=== PATIENT | male | born 1950 | race Caucasian/White ===

== ENCOUNTER 2017-07-17 09:14 | Inpatient (IN) | payer OTHER ==
[2017-07-17] MEDS ORDERED: ONDANSETRON 4 MG INJ IV (10:30)
[2017-07-17 10:49] LABS: INR 1.15; PROTIME 14.9 Sec (11.9-14.9); PT RATIO 1.2
[2017-07-17 10:50] LABS: PARTIAL THROMBOPLASTIN TIME 31.5 Sec (25.0-35.0)
[2017-07-17 11:04] LABS: IMMEDIATE SPIN CROSSMATCH 1 2
[2017-07-17] MEDS: DIPHENHYDRAMINE 50 MG INJ IV (11:24)
[2017-07-17] MEDS: ACETAMINOPHEN 325 MG TAB PO ×2 (11:25→15:30)
[2017-07-17 11:32] LABS: ALANINE AMINOTRANSFERASE 55 IU/L (13-69); ALBUMIN 3.1 g/dl (3.3-4.9); ALBUMIN/GLOBULIN RATIO 1.06; ALKALINE PHOSPHATASE 55 IU/L (42-121); ANION GAP 16 (8-16); ASPARTATE AMINO TRANSFERASE 25 IU/L (15-46); BILIRUBIN,INDIRECT 0.6 mg/dl (0-1.1); BILIRUBIN,TOTAL 0.6 mg/dl (0.2-1.3); BLOOD UREA NITROGEN 22 mg/dl (7-20); CALCIUM 8.1 mg/dl (8.4-10.2); CARBON DIOXIDE 23 mmol/L (21-31); CHLORIDE 101 mmol/L (97-110); CREATININE 0.91 mg/dl (0.61-1.24); GLUCOSE 203 mg/dl (70-220); POTASSIUM 4.6 mmol/L (3.5-5.1); SODIUM 135 mmol/L (135-144)
[2017-07-17 11:43] LABS: TROPONIN-I 0.032 ng/ml (0.00-0.12)
[2017-07-17] MEDS ORDERED: GLIMEPIRIDE 2 MG TAB PO (12:00)
[2017-07-17] MEDS ORDERED: LOSARTAN 50 MG TAB PO (12:00)
[2017-07-17 12:04] LABS: WHITE BLOOD COUNT 26.6 10^3/ul (4.8-10.8)
[2017-07-17 12:04] LABS: ABNORMAL IP MESSAGE 1; HEMATOCRIT 20.7 % (42.0-52.0); MEAN CORPUSCULAR HEMOGLOBIN 28.4 pg (29.0-33.0); MEAN CORPUSCULAR HGB CONC 32.4 g/dl (32.0-37.0); MEAN CORPUSCULAR VOLUME 87.7 fl (82.0-101.0); POSITIVE DIFF @See below; RED BLOOD COUNT 2.36 10^6/ul (4.70-6.10); RED CELL DISTRIBUTION WIDTH 15.4 % (11.5-14.5)
[2017-07-17 12:05] LABS: HEMOGLOBIN 6.7 g/dl (14.0-18.0)
[2017-07-17 12:08] LABS: ADD MAN DIFF? YES; PATH REVIEW? YES; PLATELET COUNT 0 10^3/UL (140-415)
[2017-07-17 12:18] LABS: ANISOCYTOSIS 1+ (0-0); BAND NEUTROPHILS #M 0.7 10^3/ul (0.0-0.6); BAND NEUTROPHILS % (M) 3 % (0-4); LYMPHOCYTES #M 3.4 10^3/ul (0.8-2.9); LYMPHOCYTES % (M) 13 % (15-51); METAMYELOCYTES %M 4 % (0-0); MICROCYTOSIS 1+ (0-0); MONOCYTE #M 2.1 10^3/ul (0.3-0.9); MONOCYTES % (M) 8 % (0-11); MYELOCYTES #M 0.7 10^3/ul (0.0-0.0); MYELOCYTES % (M) 3 % (0-0); PLATELET ESTIMATE SIG DECREASED; POLYCHROMASIA 1+ (0-0); REACTIVE LYMPHOCYTES% (M) 4 % (0-0); SEGMENTED NEUTROPHILS (M) % 7 % (39-77); SMUDGE%M 5 % (0-0)
[2017-07-17] MEDS ORDERED: ONDANSETRON 4 MG TAB PO (12:30)
[2017-07-17] MEDS ORDERED: DOCUSATE SODIUM 100 MG CAP PO (12:30)
[2017-07-17] MEDS ORDERED: NACL 0.9% 3 ML SYG IV (12:30)
[2017-07-17] MEDS: LACTOBACILLUS RHAMNOSUS CAP PO ×2 (15:04→20:57)
[2017-07-17] MEDS: FAMOTIDINE 20 MG TAB PO ×2 (15:04→22:29)
[2017-07-17] MEDS: metroNIDAZOLE 500 MG TAB PO ×2 (15:04→22:29)
[2017-07-17] MEDS: ACYCLOVIR 400 MG TAB PO ×2 (15:04→20:58)
[2017-07-17] MEDS: METOPROLOL 25 MG TAB PO ×2 (15:05→20:57)
[2017-07-17] MEDS: FLUCONAZOLE 100 MG TAB PO (15:05)
[2017-07-17 15:45] LABS: TYPE AND SCREEN 1
[2017-07-17 15:59] LABS: WHITE BLOOD COUNT 29.1 10^3/ul (4.8-10.8)
[2017-07-17 15:59] LABS: ABNORMAL IP MESSAGE 1; HEMATOCRIT 21.4 % (42.0-52.0); HEMOGLOBIN 7.1 g/dl (14.0-18.0); MEAN CORPUSCULAR HEMOGLOBIN 29.3 pg (29.0-33.0); MEAN CORPUSCULAR HGB CONC 33.2 g/dl (32.0-37.0); MEAN CORPUSCULAR VOLUME 88.4 fl (82.0-101.0); MEAN PLATELET VOLUME 10.5 fl (7.4-10.4); POSITIVE DIFF @See below; RED BLOOD COUNT 2.42 10^6/ul (4.70-6.10); RED CELL DISTRIBUTION WIDTH 14.6 % (11.5-14.5)
[2017-07-17 16:08] LABS: ADD MAN DIFF? YES; PLATELET COUNT 8 10^3/UL (140-415)
[2017-07-17 16:39] LABS: BAND NEUTROPHILS #M 0.5 10^3/ul (0.0-0.6); BAND NEUTROPHILS % (M) 2 % (0-4); LYMPHOCYTES #M 7.5 10^3/ul (0.8-2.9); LYMPHOCYTES % (M) 26 % (15-51); METAMYELOCYTES #M 0.8 10^3/ul (0.0-0.0); METAMYELOCYTES %M 3 % (0-0); MYELOCYTES #M 0.2 10^3/ul (0.0-0.0); MYELOCYTES % (M) 1 % (0-0); PLATELET ESTIMATE SIG DECREASED; REACTIVE LYMPHOCYTES #M 0.2 10^3/ul (0.0-0.0); REACTIVE LYMPHOCYTES% (M) 1 % (0-0); SEG NEUT #M 2.8 10^3/ul (1.7-7.5); SEGMENTED NEUTROPHILS (M) % 9 % (39-77); SMUDGE%M 9 % (0-0)
[2017-07-17] MEDS: ACCU-CHEK XX (21:01)
[2017-07-17 21:02] LABS: ABNORMAL IP MESSAGE 1; HEMATOCRIT 21.5 % (42.0-52.0); HEMOGLOBIN 7.4 g/dl (14.0-18.0); MEAN CORPUSCULAR HEMOGLOBIN 30.2 pg (29.0-33.0); MEAN CORPUSCULAR HGB CONC 34.4 g/dl (32.0-37.0); MEAN CORPUSCULAR VOLUME 87.8 fl (82.0-101.0); MEAN PLATELET VOLUME 9.6 fl (7.4-10.4); POSITIVE DIFF @See below; RED BLOOD COUNT 2.45 10^6/ul (4.70-6.10); RED CELL DISTRIBUTION WIDTH 14.6 % (11.5-14.5)
[2017-07-17 21:08] LABS: ADD MAN DIFF? YES; PLATELET COUNT 30 10^3/UL (140-415)
[2017-07-17 21:36] LABS: ANISOCYTOSIS 1+ (0-0); LYMPHOCYTES #M 6.8 10^3/ul (0.8-2.9); LYMPHOCYTES % (M) 22 % (15-51); MICROCYTOSIS 1+ (0-0); MONOCYTE #M 3.4 10^3/ul (0.3-0.9); MONOCYTES % (M) 11 % (0-11); MYELOCYTES #M 0.6 10^3/ul (0.0-0.0); MYELOCYTES % (M) 2 % (0-0); PLATELET ESTIMATE SIG DECREASED; PROMYELOCYTES #M 0.9 10^3/ul (0-0); PROMYELOCYTES % (M) 3 % (0-0); REACTIVE LYMPHOCYTES #M 0.6 10^3/ul (0.0-0.0); REACTIVE LYMPHOCYTES% (M) 2 % (0-0); SEGMENTED NEUTROPHILS (M) % 9 % (39-77); SMUDGE%M 3 % (0-0)
== END 2017-07-17 23:33 | disposition hospice, home (50) | DRG 813 ==
LOC: E/R 09:14 → PP2 10:04
PROVIDERS: Internal Medicine
PROC: 30233R1 Transfusion of Nonautologous Platelets into Peripheral Vein, Percutaneous Approach (ICD-10-PCS; principal; 2017-07-17)
PROC: 30233N1 Transfusion of Nonautologous Red Blood Cells into Peripheral Vein, Percutaneous Approach (ICD-10-PCS; 2017-07-17)
DX: D69.6 Thrombocytopenia, unspecified (principal); C92.00 Acute myeloblastic leukemia, not having achieved remission; I10 Essential (primary) hypertension; E11.9 Type 2 diabetes mellitus without complications; Z87.891 Personal history of nicotine dependence
CPT/HCPCS: 36415; 36430; 80053; 82962; 84484; 85025; 85610; 85730; 86644; 86850; 86900; 86901; 86920; 86945; 87081; 93005; 96374; 99291-25

== ENCOUNTER 2017-07-19 12:58 | Day surgery (SDC) | payer OTHER ==
[2017-07-20] MEDS: ACETAMINOPHEN 325 MG TAB PO ×2 (09:47→13:25)
[2017-07-20] MEDS: DIPHENHYDRAMINE 50 MG INJ IV (09:47)
[2017-07-20 10:04] LABS: IMMEDIATE SPIN CROSSMATCH 1 1
[2017-07-20 13:13] LABS: TYPE AND SCREEN 1
== END 2017-07-20 | disposition home or self-care (01) ==
LOC: LAB 12:58 → SDS 07-20 08:46
DX: C92.00 Acute myeloblastic leukemia, not having achieved remission (principal)
CPT/HCPCS: 36430; 86644; 86850; 86900; 86901; 86920; 86945

== ENCOUNTER 2017-08-03 11:11 | Emergency (ER) | payer OTHER ==
[2017-08-03 14:06] LABS: ABNORMAL IP MESSAGE 1; HEMOGLOBIN 8.7 g/dl (14.0-18.0); MEAN CORPUSCULAR HEMOGLOBIN 29.4 pg (29.0-33.0); MEAN CORPUSCULAR HGB CONC 32.2 g/dl (32.0-37.0); MEAN CORPUSCULAR VOLUME 91.2 fl (82.0-101.0); MEAN PLATELET VOLUME 10.2 fl (7.4-10.4); POSITIVE DIFF @See below; RED BLOOD COUNT 2.96 10^6/ul (4.70-6.10); RED CELL DISTRIBUTION WIDTH 14.9 % (11.5-14.5)
[2017-08-03 14:06] LABS: WHITE BLOOD COUNT 9.8 10^3/ul (4.8-10.8)
[2017-08-03 14:23] LABS: INR 1.07; PT RATIO 1.1
[2017-08-03 14:24] LABS: ANION GAP 15 (8-16); BLOOD UREA NITROGEN 24 mg/dl (7-20); CALCIUM 9.6 mg/dl (8.4-10.2); CARBON DIOXIDE 25 mmol/L (21-31); CHLORIDE 102 mmol/L (97-110); CREATININE 0.98 mg/dl (0.61-1.24); GLUCOSE 110 mg/dl (70-220); PARTIAL THROMBOPLASTIN TIME 32.9 Sec (25.0-35.0); POTASSIUM 4.4 mmol/L (3.5-5.1); SODIUM 138 mmol/L (135-144)
[2017-08-03 14:28] LABS: ADD MAN DIFF? YES
[2017-08-03] MEDS: DIPHENHYDRAMINE 50 MG INJ IV (16:27)
[2017-08-03] MEDS: ACETAMINOPHEN 500 MG TAB PO (16:27)
[2017-08-03 19:18] LABS: IMMEDIATE SPIN CROSSMATCH 1 2
[2017-08-03 21:22] LABS: TYPE AND SCREEN 1
[2017-08-03 21:25] LABS: BLASTOCYTES #M 0.6 10^3/ul (0.0-0.0); LYMPHOCYTES % (M) 31 % (15-51); MONOCYTE # 0.6 10^3/ul (0.3-0.9); MONOCYTE #M 0.5 10^3/ul (0.3-0.9); MONOCYTES % (M) 6 % (0-11); PROMYELOCYTES #M 0.1 10^3/ul (0-0); PROMYELOCYTES % (M) 2 % (0-0); SEGMENTED NEUTROPHILS (M) % 3 % (39-77)
[2017-08-03 21:34] LABS: MYELOCYTES #M 0.1 10^3/ul (0.0-0.0); MYELOCYTES % (M) 2 % (0-0)
[2017-08-03 21:35] LABS: ANISOCYTOSIS OCCASIONAL (0-0); OVALOCYTES FEW (0-0); POIKILOCYTOSIS OCCASIONAL (0-0); SPHEROCYTES FEW (0-0)
[2017-08-03 21:36] LABS: SCHISTOCYTES FEW (0-0)
[2017-08-03 21:37] LABS: PLATELET COUNT 4 10^3/UL (140-415)
[2017-08-03 21:53] LABS: PLATELET ESTIMATE SIG DECREASED
[2017-08-03] MEDS: FAMOTIDINE 20 MG TAB PO (22:47)
== END 2017-08-04 00:07 | disposition home or self-care (01) ==
LOC: E/R 08-04 00:07
DX: D69.6 Thrombocytopenia, unspecified (principal); I10 Essential (primary) hypertension; Z85.6 Personal history of leukemia
CPT/HCPCS: 36415; 36430; 80048; 85025; 85610; 85730; 86644; 86850; 86900; 86901; 86920; 86945; 96374; 99285-25

== ENCOUNTER 2017-08-06 14:50 | Observation (INO) | payer OTHER ==
[2017-08-06] MEDS: SOD CHLORIDE 0.9% 500 ML IV ×2 (18:00→22:50)
[2017-08-06 18:33] LABS: ABNORMAL IP MESSAGE 1; HEMATOCRIT 28.1 % (42.0-52.0); HEMOGLOBIN 9.3 g/dl (14.0-18.0); MEAN CORPUSCULAR HEMOGLOBIN 29.5 pg (29.0-33.0); MEAN CORPUSCULAR HGB CONC 33.1 g/dl (32.0-37.0); MEAN CORPUSCULAR VOLUME 89.2 fl (82.0-101.0); MEAN PLATELET VOLUME 8.1 fl (7.4-10.4); POSITIVE DIFF @See below; RED BLOOD COUNT 3.15 10^6/ul (4.70-6.10); RED CELL DISTRIBUTION WIDTH 15.5 % (11.5-14.5)
[2017-08-06 18:33] LABS: WHITE BLOOD COUNT 10.2 10^3/ul (4.8-10.8)
[2017-08-06 18:47] LABS: PLATELET COUNT 6 10^3/UL (140-415)
[2017-08-06 18:48] LABS: ADD MAN DIFF? YES
[2017-08-06 18:57] LABS: ALANINE AMINOTRANSFERASE 36 IU/L (13-69); ALBUMIN 3.9 g/dl (3.3-4.9); ALBUMIN/GLOBULIN RATIO 1.14; ALKALINE PHOSPHATASE 98 IU/L (42-121); ANION GAP 15 (8-16); ASPARTATE AMINO TRANSFERASE 13 IU/L (15-46); BILIRUBIN,INDIRECT 0.2 mg/dl (0-1.1); BILIRUBIN,TOTAL 0.2 mg/dl (0.2-1.3); BLOOD UREA NITROGEN 17 mg/dl (7-20); CALCIUM 9.1 mg/dl (8.4-10.2); CARBON DIOXIDE 26 mmol/L (21-31); CHLORIDE 102 mmol/L (97-110); CREATININE 0.88 mg/dl (0.61-1.24); GLUCOSE 134 mg/dl (70-220); POTASSIUM 4.4 mmol/L (3.5-5.1); SODIUM 139 mmol/L (135-144); TOTAL PROTEIN 7.3 g/dl (6.1-8.1)
[2017-08-06 18:59] LABS: INR 1.01; PROTIME 13.4 Sec (11.9-14.9)
[2017-08-06 19:00] LABS: PARTIAL THROMBOPLASTIN TIME 32.9 Sec (25.0-35.0)
[2017-08-06 19:14] LABS: TROPONIN-I < 0.012 ng/ml (0.00-0.12)
[2017-08-06 19:31] LABS: BAND NEUTROPHILS #M 0.1 10^3/ul (0.0-0.6); BAND NEUTROPHILS % (M) 1 % (0-4); BLAST% (M) 62.6 % (0-0); LYMPHOCYTES #M 1.3 10^3/ul (0.8-2.9); LYMPHOCYTES % (M) 13 % (15-51); METAMYELOCYTES #M 0.1 10^3/ul (0.0-0.0); METAMYELOCYTES %M 1 % (0-0); MONOCYTE #M 0.7 10^3/ul (0.3-0.9); MONOCYTES % (M) 7 % (0-11); PLATELET ESTIMATE SIG DECREASED; PLATELET MORPHOLOGY COMMENT @See below; PROMYELOCYTES #M 0.1 10^3/ul (0-0); PROMYELOCYTES % (M) 1 % (0-0); SEG NEUT #M 1.4 10^3/ul (1.7-7.5); SEGMENTED NEUTROPHILS (M) % 14 % (39-77); SMUDGE%M 11 % (0-0)
[2017-08-06] MEDS ORDERED: DEXTROSE 50% 50 ML SYRINGE IV ×2 (20:30)
[2017-08-06] MEDS ORDERED: GLUCOSE GEL 15 GRAM TUBE BUCCAL (20:30)
[2017-08-06] MEDS ORDERED: GLUCAGON 1 MG INJ IM (20:30)
[2017-08-06] MEDS ORDERED: ONDANSETRON 4 MG INJ IV (20:30)
[2017-08-06] MEDS ORDERED: ACETAMINOPHEN 325 MG TAB PO (20:30)
[2017-08-06] MEDS ORDERED: GLUCOSE GEL 15 GRAM TUBE PO ×2 (20:30)
[2017-08-06] MEDS: ATORVASTATIN 10 MG TAB PO (21:00)
[2017-08-06] MEDS: METOPROLOL 50 MG TAB PO (21:00)
[2017-08-07] MEDS ORDERED: LORAZEPAM 2 MG INJ IV (00:30)
[2017-08-07] MEDS ORDERED: ONDANSETRON 4 MG INJ IV (00:30)
[2017-08-07] MEDS ORDERED: HYDROCODONE/APAP (10/325) TAB PO (00:30)
[2017-08-07] MEDS: ACETAMINOPHEN 325 MG TAB PO (00:54)
[2017-08-07] MEDS: DIPHENHYDRAMINE 50 MG INJ IV (01:02)
[2017-08-07] MEDS: METOCLOPRAMIDE 10 MG INJ IV (01:03)
[2017-08-07 04:09] LABS: TYPE AND SCREEN 1 1
[2017-08-07 06:30] LABS: ADD MAN DIFF? NO
[2017-08-07 06:36] LABS: ABNORMAL IP MESSAGE 1; LYMPHOCYTES # 3.5 10^3/ul (0.8-2.9); LYMPHOCYTES % 38.4 % (15.0-51.0); MEAN CORPUSCULAR HEMOGLOBIN 29.6 pg (29.0-33.0); MEAN CORPUSCULAR HGB CONC 33.3 g/dl (32.0-37.0); MEAN CORPUSCULAR VOLUME 88.9 fl (82.0-101.0); MONOCYTE # 3.3 10^3/ul (0.3-0.9); NEUTROPHIL # 1.9 10^3/ul (1.6-7.5); NEUTROPHILS % 20.8 % (39.0-77.0); PLATELET COUNT 41 10^3/UL (140-415); POSITIVE DIFF @See below; RED CELL DISTRIBUTION WIDTH 15.5 % (11.5-14.5)
[2017-08-07 06:36] LABS: WHITE BLOOD COUNT 9.2 10^3/ul (4.8-10.8)
[2017-08-07 07:20] LABS: MONOCYTES % 35.6 % (0.0-11.0)
[2017-08-07] MEDS: INSULIN ASPART [NOVOLOG] 3 ML PEN SC (07:50)
[2017-08-07] MEDS: METOPROLOL 50 MG TAB PO (09:04)
[2017-08-07] MEDS: GLIMEPIRIDE 2 MG TAB PO (09:04)
[2017-08-07 10:08] LABS: ANISOCYTOSIS 2+ (0-0); BAND NEUTROPHILS #M 0.3 10^3/ul (0.0-0.6); BAND NEUTROPHILS % (M) 4 % (0-4); LYMPHOCYTES #M 1.1 10^3/ul (0.8-2.9); LYMPHOCYTES % (M) 13 % (15-51); MICROCYTOSIS 2+ (0-0); MONOCYTE #M 0.3 10^3/ul (0.3-0.9); MONOCYTES % (M) 4 % (0-11); PLATELET ESTIMATE SIG DECREASED; SEG NEUT #M 0.9 10^3/ul (1.7-7.5); SEGMENTED NEUTROPHILS (M) % 9 % (39-77)
== END 2017-08-07 10:57 | disposition home or self-care (01) ==
LOC: E/R 14:50 → MS1 20:01
DX: C92.00 Acute myeloblastic leukemia, not having achieved remission (principal); D69.6 Thrombocytopenia, unspecified; I10 Essential (primary) hypertension; E11.9 Type 2 diabetes mellitus without complications; F41.9 Anxiety disorder, unspecified; R51 Headache; Z87.891 Personal history of nicotine dependence
CPT/HCPCS: 36415; 36430; 70450; 80053; 82962; 84484; 85025; 85610; 85730; 86644; 86850; 86900; 86901; 86945; 99285-25

== ENCOUNTER 2017-08-13 10:54 | Inpatient (IN) | payer OTHER ==
[2017-08-13] MEDS: SODIUM CHLORIDE 0.9% 1L BAG IV* (12:36)
[2017-08-13] MEDS: CEFEPIME 2GM/50 ML (PMX) 50 ML IVPB (12:37)
[2017-08-13] MEDS: ACETAMINOPHEN 325 MG TAB PO ×3 (12:37→20:56)
[2017-08-13 12:39] LABS: WHITE BLOOD COUNT 31.7 10^3/ul (4.8-10.8)
[2017-08-13 12:39] LABS: ABNORMAL IP MESSAGE 1; HEMATOCRIT 25.6 % (42.0-52.0); HEMOGLOBIN 8.5 g/dl (14.0-18.0); MEAN CORPUSCULAR HEMOGLOBIN 28.9 pg (29.0-33.0); MEAN CORPUSCULAR HGB CONC 33.2 g/dl (32.0-37.0); MEAN CORPUSCULAR VOLUME 87.1 fl (82.0-101.0); MEAN PLATELET VOLUME 10.8 fl (7.4-10.4); POSITIVE DIFF @See below; RED BLOOD COUNT 2.94 10^6/ul (4.70-6.10); RED CELL DISTRIBUTION WIDTH 14.8 % (11.5-14.5)
[2017-08-13 12:52] LABS: ADD MAN DIFF? YES; PLATELET COUNT 9 10^3/UL (140-415)
[2017-08-13 13:01] LABS: ALANINE AMINOTRANSFERASE 32 IU/L (13-69); ALBUMIN 3.7 g/dl (3.3-4.9); ALBUMIN/GLOBULIN RATIO 1.15; ALKALINE PHOSPHATASE 90 IU/L (42-121); ANION GAP 17 (8-16); ASPARTATE AMINO TRANSFERASE 15 IU/L (15-46); BILIRUBIN,INDIRECT 0.4 mg/dl (0-1.1); BILIRUBIN,TOTAL 0.4 mg/dl (0.2-1.3); BLOOD UREA NITROGEN 18 mg/dl (7-20); CALCIUM 8.6 mg/dl (8.4-10.2); CARBON DIOXIDE 22 mmol/L (21-31); CHLORIDE 99 mmol/L (97-110); GLUCOSE 167 mg/dl (70-220); PARTIAL THROMBOPLASTIN TIME 38.8 Sec (25.0-35.0); POTASSIUM 4.6 mmol/L (3.5-5.1); PROTIME 15.4 Sec (11.9-14.9); PT RATIO 1.2; SODIUM 133 mmol/L (135-144); TOTAL PROTEIN 6.9 g/dl (6.1-8.1)
[2017-08-13 13:01] LABS: LACTIC ACID 1.8 mmol/L (0.5-2.0)
[2017-08-13 13:02] LABS: LACTIC ACID 1.7 mmol/L (0.5-2.0)
[2017-08-13 13:12] LABS: TROPONIN-I < 0.012 ng/ml (0.00-0.12)
[2017-08-13] MEDS: VANCOMYCIN 1 GM (PMX) 250 ML IVPB (13:19)
[2017-08-13 13:51] LABS: ADD UMIC YES; UR ASCORBIC ACID 40 mg/dL (NEGATIVE); UR BILIRUBIN (Dip) NEGATIVE (NEGATIVE); UR BLOOD (Dip) 1+ mg/dL (NEGATIVE); UR CLARITY SLIGHTLY CLOUDY (CLEAR); UR COLOR YELLOW (YELLOW); UR GLUCOSE (Dip) NEGATIVE (NEGATIVE); UR KETONES (Dip) NEGATIVE (NEGATIVE); UR LEUKOCYTE ESTERASE (Dip) NEGATIVE Leu/ul (NEGATIVE); UR NITRITE (Dip) NEGATIVE (NEGATIVE); UR RBC 12 /HPF (0-5); UR SPECIFIC GRAVITY (Dip) 1.013 (1.003-1.030); UR TOTAL PROTEIN (Dip) NEGATIVE (NEGATIVE); UR UROBILINOGEN (Dip) NEGATIVE (NEGATIVE); UR WBC 1 /HPF (0-5)
[2017-08-13] MEDS ORDERED: ONDANSETRON 4 MG INJ IV (14:00)
[2017-08-13 14:06] LABS: LYMPHOCYTES #M 6.3 10^3/ul (0.8-2.9); LYMPHOCYTES % (M) 20 % (15-51); MONOCYTE #M 0.9 10^3/ul (0.3-0.9); MONOCYTES % (M) 3 % (0-11); PLATELET ESTIMATE SIG DECREASED; PROMYELOCYTES #M 0.3 10^3/ul (0-0); PROMYELOCYTES % (M) 1 % (0-0); SEGMENTED NEUTROPHILS (M) % 9 % (39-77); SMUDGE%M 8 % (0-0)
[2017-08-13 16:46] LABS: LACTIC ACID 1.2 mmol/L (0.5-2.0)
[2017-08-13] MEDS ORDERED: DOCUSATE SODIUM 100 MG CAP PO (17:30)
[2017-08-13] MEDS ORDERED: NACL 0.9% 3 ML SYG IV (17:30)
[2017-08-13] MEDS ORDERED: BISACODYL 10 MG SUPP PR (17:30)
[2017-08-13] MEDS ORDERED: morphine 2 MG INJ IV (17:30)
[2017-08-13] MEDS ORDERED: VANCOMYCIN IV PER PHARMACY XX (17:30)
[2017-08-13] MEDS ORDERED: HYDROCODONE/APAP (5/325) TAB PO (17:30)
[2017-08-13] MEDS ORDERED: MAGNESIUM HYDROXIDE 30ML CUP PO (17:30)
[2017-08-13 17:54] LABS: CREATINE KINASE < 20 IU/L (23-200)
[2017-08-13] MEDS ORDERED: morphine LIQ (10 MG/5 ML) CUP PO (18:30)
[2017-08-13] MEDS: DIPHENHYDRAMINE 50 MG INJ IV (20:56)
[2017-08-13] MEDS ORDERED: VANCOMYCIN 750 MG in DEXTROSE 5% 150 ML IVPB (22:00)
[2017-08-13] MEDS: FAMOTIDINE 20 MG TAB PO (22:21)
[2017-08-13] MEDS: METOPROLOL 25 MG TAB PO (22:21)
[2017-08-13] MEDS: VANCOMYCIN 1.25 GM in SOD CHLORIDE 0.45% 250 ML IVPB (23:17)
[2017-08-14] MEDS: ACETAMINOPHEN 325 MG TAB PO ×5 (01:34→21:19)
[2017-08-14] MEDS: CEFEPIME 2GM/50 ML (PMX) 50 ML IVPB ×4 (02:16→21:15)
[2017-08-14] MEDS: METOPROLOL 25 MG TAB PO ×3 (08:45→21:14)
[2017-08-14] MEDS: FAMOTIDINE 20 MG TAB PO ×2 (08:45→21:14)
[2017-08-14] MEDS: VANCOMYCIN 1.25 GM in SOD CHLORIDE 0.45% 250 ML IVPB ×3 (09:00→23:21)
[2017-08-14] MEDS: DIPHENHYDRAMINE 25 MG CAP PO (10:01)
[2017-08-14 12:31] LABS: ABNORMAL IP MESSAGE 1; HEMATOCRIT 24.1 % (42.0-52.0); MEAN CORPUSCULAR HEMOGLOBIN 29.7 pg (29.0-33.0); MEAN CORPUSCULAR HGB CONC 33.2 g/dl (32.0-37.0); MEAN CORPUSCULAR VOLUME 89.6 fl (82.0-101.0); MEAN PLATELET VOLUME 9.4 fl (7.4-10.4); POSITIVE DIFF @See below; RED BLOOD COUNT 2.69 10^6/ul (4.70-6.10); RED CELL DISTRIBUTION WIDTH 15.1 % (11.5-14.5)
[2017-08-14 12:31] LABS: WHITE BLOOD COUNT 37.4 10^3/ul (4.8-10.8)
[2017-08-14 12:49] LABS: ADD MAN DIFF? YES; PLATELET COUNT 30 10^3/UL (140-415)
[2017-08-14 12:53] LABS: ALANINE AMINOTRANSFERASE 33 IU/L (13-69); ALBUMIN 3.4 g/dl (3.3-4.9); ALBUMIN/GLOBULIN RATIO 1.03; ALKALINE PHOSPHATASE 84 IU/L (42-121); ANION GAP 15 (8-16); ASPARTATE AMINO TRANSFERASE 15 IU/L (15-46); BILIRUBIN,INDIRECT 0.6 mg/dl (0-1.1); BILIRUBIN,TOTAL 0.6 mg/dl (0.2-1.3); BLOOD UREA NITROGEN 13 mg/dl (7-20); CALCIUM 8.7 mg/dl (8.4-10.2); CARBON DIOXIDE 22 mmol/L (21-31); CHLORIDE 104 mmol/L (97-110); CREATININE 0.85 mg/dl (0.61-1.24); GLUCOSE 207 mg/dl (70-220); PHOSPHORUS 3.3 mg/dl (2.5-4.9); POTASSIUM 4.2 mmol/L (3.5-5.1); SODIUM 137 mmol/L (135-144); TOTAL PROTEIN 6.7 g/dl (6.1-8.1)
[2017-08-14] MEDS ORDERED: GLUCOSE GEL 15 GRAM TUBE PO ×2 (13:00)
[2017-08-14] MEDS ORDERED: GLUCAGON 1 MG INJ IM (13:00)
[2017-08-14] MEDS ORDERED: DEXTROSE 50% 50 ML SYRINGE IV ×2 (13:00)
[2017-08-14] MEDS ORDERED: GLUCOSE GEL 15 GRAM TUBE BUCCAL (13:00)
[2017-08-14 13:38] LABS: ANISOCYTOSIS 2+ (0-0); BAND NEUTROPHILS #M 0.7 10^3/ul (0.0-0.6); BAND NEUTROPHILS % (M) 2 % (0-4); BLAST% (M) 70.2 % (0-0); LYMPHOCYTES #M 6.3 10^3/ul (0.8-2.9); LYMPHOCYTES % (M) 17 % (15-51); MICROCYTOSIS 2+ (0-0); MONOCYTE #M 2.2 10^3/ul (0.3-0.9); MONOCYTES % (M) 6 % (0-11); PLATELET ESTIMATE SIG DECREASED; POIKILOCYTOSIS 1+ (0-0); POLYCHROMASIA 3+ (0-0); PROMYELOCYTES #M 0.3 10^3/ul (0-0); PROMYELOCYTES % (M) 1 % (0-0); SEG NEUT #M 1.8 10^3/ul (1.7-7.5); SEGMENTED NEUTROPHILS (M) % 4 % (39-77)
[2017-08-14] MEDS: INSULIN ASPART [NOVOLOG] 3 ML PEN SC ×2 (17:24→21:17)
[2017-08-15] MEDS: ACCU-CHEK XX (01:26)
[2017-08-15] MEDS: HYDROCODONE/APAP (5/325) TAB PO (03:13)
[2017-08-15 05:09] LABS: WHITE BLOOD COUNT 43.3 10^3/ul (4.8-10.8)
[2017-08-15 05:09] LABS: ABNORMAL IP MESSAGE 1; MEAN CORPUSCULAR HEMOGLOBIN 28.8 pg (29.0-33.0); MEAN CORPUSCULAR HGB CONC 32.9 g/dl (32.0-37.0); MEAN CORPUSCULAR VOLUME 87.5 fl (82.0-101.0); MEAN PLATELET VOLUME 10.4 fl (7.4-10.4); POSITIVE DIFF @See below; RED CELL DISTRIBUTION WIDTH 14.8 % (11.5-14.5)
[2017-08-15 05:20] LABS: HEMOGLOBIN 6.9 g/dl (14.0-18.0); PLATELET COUNT 16 10^3/UL (140-415)
[2017-08-15 05:21] LABS: ADD MAN DIFF? YES
[2017-08-15 05:44] LABS: ANION GAP 14 (8-16); BLOOD UREA NITROGEN 12 mg/dl (7-20); CALCIUM 8.2 mg/dl (8.4-10.2); CARBON DIOXIDE 23 mmol/L (21-31); CHLORIDE 101 mmol/L (97-110); CREATININE 0.92 mg/dl (0.61-1.24); GLUCOSE 192 mg/dl (70-220); POTASSIUM 3.7 mmol/L (3.5-5.1); SODIUM 134 mmol/L (135-144)
[2017-08-15 05:48] LABS: PHOSPHORUS 2.7 mg/dl (2.5-4.9)
[2017-08-15 05:48] LABS: MAGNESIUM 1.8 mg/dl (1.7-2.5)
[2017-08-15] MEDS: ACETAMINOPHEN 325 MG TAB PO ×5 (07:46→23:00)
[2017-08-15] MEDS: INSULIN ASPART [NOVOLOG] 3 ML PEN SC ×4 (07:48→22:28)
[2017-08-15] MEDS: METOPROLOL 25 MG TAB PO ×2 (08:59→20:38)
[2017-08-15] MEDS: CEFEPIME 2GM/50 ML (PMX) 50 ML IVPB (08:59)
[2017-08-15] MEDS: DIPHENHYDRAMINE 25 MG CAP PO ×3 (09:00→19:56)
[2017-08-15] MEDS ORDERED: FUROSEMIDE 20 MG INJ IV (09:30)
[2017-08-15 10:03] LABS: ANISOCYTOSIS 1+ (0-0); BAND NEUTROPHILS #M 0.4 10^3/ul (0.0-0.6); BAND NEUTROPHILS % (M) 1 % (0-4); LYMPHOCYTES #M 2.1 10^3/ul (0.8-2.9); LYMPHOCYTES % (M) 5 % (15-51); METAMYELOCYTES #M 0.4 10^3/ul (0.0-0.0); METAMYELOCYTES %M 1 % (0-0); MICROCYTOSIS 1+ (0-0); MONOCYTE #M 0.8 10^3/ul (0.3-0.9); MONOCYTES % (M) 2 % (0-11); MYELOCYTES #M 0.4 10^3/ul (0.0-0.0); MYELOCYTES % (M) 1 % (0-0); PLATELET ESTIMATE SIG DECREASED; POLYCHROMASIA 3+ (0-0); PROMYELOCYTES #M 2.1 10^3/ul (0-0); PROMYELOCYTES % (M) 5 % (0-0); REACTIVE LYMPHOCYTES #M 0.4 10^3/ul (0.0-0.0); REACTIVE LYMPHOCYTES% (M) 1 % (0-0); SEG NEUT #M 1.9 10^3/ul (1.7-7.5); SEGMENTED NEUTROPHILS (M) % 4 % (39-77); SMUDGE%M 3 % (0-0)
[2017-08-15] MEDS: SOD CHLORIDE 0.9% 250 ML IV* (11:19)
[2017-08-15] MEDS: FAMOTIDINE 20 MG TAB PO ×2 (11:53→20:38)
[2017-08-15] MEDS: FUROSEMIDE 40 MG INJ IV (12:08)
[2017-08-15] MEDS: VANCOMYCIN 1.25 GM in SOD CHLORIDE 0.45% 250 ML IVPB (12:48)
[2017-08-15 15:46] LABS: TYPE AND SCREEN 1
[2017-08-15 19:26] LABS: IMMEDIATE SPIN CROSSMATCH 1 2
[2017-08-15] MEDS: FLUCONAZOLE 400 MG/NS (PMX) 200 ML IVPB (23:00)
[2017-08-15 23:09] LABS: VANCOMYCIN,TROUGH 14.2 ug/ml (10.0-20.0)
[2017-08-16] MEDS: MEROPENEM 2 GM in SOD CHLORIDE 0.9% 100 ML IVPB ×2 (00:06→05:18)
[2017-08-16] MEDS: ACCU-CHEK XX (01:58)
[2017-08-16] MEDS: VANCOMYCIN 1.25 GM in SOD CHLORIDE 0.45% 250 ML IVPB ×3 (01:58→22:42)
[2017-08-16] MEDS: ACETAMINOPHEN 325 MG TAB PO ×2 (03:00→09:06)
[2017-08-16] MEDS: ONDANSETRON 4 MG INJ IV (03:31)
[2017-08-16 08:45] LABS: ABNORMAL IP MESSAGE 1; HEMATOCRIT 23.5 % (42.0-52.0); MEAN CORPUSCULAR HEMOGLOBIN 29.3 pg (29.0-33.0); MEAN CORPUSCULAR VOLUME 86.1 fl (82.0-101.0); MEAN PLATELET VOLUME 10.5 fl (7.4-10.4); POSITIVE DIFF @See below; RED BLOOD COUNT 2.73 10^6/ul (4.70-6.10); RED CELL DISTRIBUTION WIDTH 14.7 % (11.5-14.5)
[2017-08-16 08:45] LABS: WHITE BLOOD COUNT 52.4 10^3/ul (4.8-10.8)
[2017-08-16 09:04] LABS: PHOSPHORUS 2.6 mg/dl (2.5-4.9)
[2017-08-16 09:04] LABS: MAGNESIUM 1.7 mg/dl (1.7-2.5)
[2017-08-16] MEDS: FAMOTIDINE 20 MG TAB PO ×2 (09:05→21:19)
[2017-08-16] MEDS: METOPROLOL 25 MG TAB PO ×2 (09:06→21:19)
[2017-08-16 09:15] LABS: ANION GAP 15 (8-16); BLOOD UREA NITROGEN 17 mg/dl (7-20); CALCIUM 8.5 mg/dl (8.4-10.2); CARBON DIOXIDE 25 mmol/L (21-31); CHLORIDE 99 mmol/L (97-110); CREATININE 1.03 mg/dl (0.61-1.24); GLUCOSE 199 mg/dl (70-220); POTASSIUM 3.6 mmol/L (3.5-5.1); SODIUM 135 mmol/L (135-144)
[2017-08-16] MEDS: INSULIN ASPART [NOVOLOG] 3 ML PEN SC ×4 (09:16→21:00)
[2017-08-16 09:47] LABS: ADD MAN DIFF? YES; PLATELET COUNT 27 10^3/UL (140-415)
[2017-08-16] MEDS: FLUCONAZOLE 400 MG/NS (PMX) 200 ML IVPB (12:00)
[2017-08-16 12:15] LABS: FIBRIN SPLIT PRODUCT <10 ug/ml (<10)
[2017-08-16 12:18] LABS: PLATELET COUNT 22 10^3/UL (140-415)
[2017-08-16 12:22] LABS: INR 1.54; PROTIME 18.8 Sec (11.9-14.9); PT RATIO 1.5
[2017-08-16 12:23] LABS: PARTIAL THROMBOPLASTIN TIME 48.1 Sec (25.0-35.0)
[2017-08-16 12:25] LABS: D-DIMER 1048.13 ng/ml (<460)
[2017-08-16 12:44] LABS: ANISOCYTOSIS 1+ (0-0); HYPOCHROMASIA 1+ (0-0); LYMPHOCYTES #M 3.1 10^3/ul (0.8-2.9); LYMPHOCYTES % (M) 6 % (15-51); MICROCYTOSIS 1+ (0-0); MONOCYTES % (M) 2 % (0-11); OVALOCYTES 1+ (0-0); PLATELET ESTIMATE DECREASED; REACTIVE LYMPHOCYTES #M 28.2 10^3/ul (0.0-0.0); REACTIVE LYMPHOCYTES% (M) 54 % (0-0); SEGMENTED NEUTROPHILS (M) % 4 % (39-77); SMUDGE%M 9 % (0-0)
[2017-08-16] MEDS: MEROPENEM 1 GM/50ML(PMX) 50 ML IVPB ×2 (16:26→21:31)
[2017-08-16] MEDS: IBUPROFEN 400 MG TAB PO (16:35)
[2017-08-16] MEDS: SOD CHLORIDE 0.9% IVPB ×2 (17:00→21:22)
[2017-08-16] MEDS: ACYCLOVIR IVPB ×2 (17:00→21:22)
[2017-08-17] MEDS: ACCU-CHEK XX (02:00)
[2017-08-17] MEDS: ACYCLOVIR IVPB ×2 (05:11→17:00)
[2017-08-17] MEDS: MEROPENEM 1 GM/50ML(PMX) 50 ML IVPB ×3 (05:11→21:44)
[2017-08-17] MEDS: SOD CHLORIDE 0.9% IVPB ×2 (05:11→17:00)
[2017-08-17] MEDS ORDERED: IOHEXOL 300MG/ML 150 ML BTL (05:54)
[2017-08-17] MEDS ORDERED: SOD CHLORIDE 0.9% 100 ML (05:54)
[2017-08-17] MEDS: ONDANSETRON 4 MG INJ IV (06:40)
[2017-08-17 07:54] LABS: ABNORMAL IP MESSAGE 1; HEMATOCRIT 23.9 % (42.0-52.0); HEMOGLOBIN 8.1 g/dl (14.0-18.0); MEAN CORPUSCULAR HEMOGLOBIN 29.8 pg (29.0-33.0); MEAN CORPUSCULAR HGB CONC 33.9 g/dl (32.0-37.0); MEAN CORPUSCULAR VOLUME 87.9 fl (82.0-101.0); MEAN PLATELET VOLUME 9.9 fl (7.4-10.4); POSITIVE DIFF @See below; RED BLOOD COUNT 2.72 10^6/ul (4.70-6.10)
[2017-08-17 07:54] LABS: WHITE BLOOD COUNT 53.2 10^3/ul (4.8-10.8)
[2017-08-17 08:01] LABS: ADD MAN DIFF? YES; PLATELET COUNT 13 10^3/UL (140-415)
[2017-08-17] MEDS: INSULIN ASPART [NOVOLOG] 3 ML PEN SC ×4 (08:07→21:00)
[2017-08-17 08:13] LABS: ALANINE AMINOTRANSFERASE 31 IU/L (13-69); ALBUMIN 3.1 g/dl (3.3-4.9); ALBUMIN/GLOBULIN RATIO 0.83; ALKALINE PHOSPHATASE 97 IU/L (42-121); ANION GAP 15 (8-16); ASPARTATE AMINO TRANSFERASE 17 IU/L (15-46); BILIRUBIN,INDIRECT 0.8 mg/dl (0-1.1); BILIRUBIN,TOTAL 0.8 mg/dl (0.2-1.3); BLOOD UREA NITROGEN 31 mg/dl (7-20); CALCIUM 8.8 mg/dl (8.4-10.2); CARBON DIOXIDE 26 mmol/L (21-31); CHLORIDE 104 mmol/L (97-110); CREATININE 1.09 mg/dl (0.61-1.24); GLUCOSE 175 mg/dl (70-220); POTASSIUM 3.3 mmol/L (3.5-5.1); SODIUM 142 mmol/L (135-144); TOTAL PROTEIN 6.8 g/dl (6.1-8.1)
[2017-08-17 08:17] LABS: MAGNESIUM 2.3 mg/dl (1.7-2.5)
[2017-08-17] MEDS: METOPROLOL 25 MG TAB PO ×2 (09:21→21:44)
[2017-08-17] MEDS: FAMOTIDINE 20 MG TAB PO ×2 (09:21→21:43)
[2017-08-17] MEDS: FLUCONAZOLE 200 MG/NS (PMX) 100 ML IVPB (09:24)
[2017-08-17 09:43] LABS: ANISOCYTOSIS 1+ (0-0); LYMPHOCYTES #M 10.6 10^3/ul (0.8-2.9); LYMPHOCYTES % (M) 20 % (15-51); MICROCYTOSIS 1+ (0-0); MONOCYTE #M 5.3 10^3/ul (0.3-0.9); MONOCYTES % (M) 10 % (0-11); PLATELET ESTIMATE SIG DECREASED; POLYCHROMASIA 1+ (0-0); PROMYELOCYTES #M 0.5 10^3/ul (0-0); PROMYELOCYTES % (M) 1 % (0-0); SEGMENTED NEUTROPHILS (M) % 3 % (39-77); SMUDGE%M 2 % (0-0)
[2017-08-17] MEDS: FUROSEMIDE 40 MG INJ IV (09:46)
[2017-08-17] MEDS: VANCOMYCIN 1.25 GM in SOD CHLORIDE 0.45% 250 ML IVPB (10:23)
[2017-08-17] MEDS: LINEZOLID 600 MG/D5W (PMX) 300 ML IVPB ×2 (11:22→21:44)
[2017-08-17] MEDS: PHYTONADIONE (1 MG/ML PO SYG) PO (11:56)
[2017-08-17] MEDS: FOSFOMYCIN 3 GM PACKET PO (16:19)
[2017-08-17] MEDS: DIPHENHYDRAMINE 25 MG CAP PO (16:19)
[2017-08-17] MEDS: ACETAMINOPHEN 325 MG TAB PO (17:13)
[2017-08-18] MEDS: SOD CHLORIDE 0.9% IVPB ×2 (00:46→10:00)
[2017-08-18] MEDS: ACYCLOVIR IVPB ×2 (00:46→10:00)
[2017-08-18] MEDS: ACCU-CHEK XX (02:00)
[2017-08-18] MEDS: ACETAMINOPHEN 325 MG TAB PO ×2 (03:29→11:41)
[2017-08-18] MEDS: MEROPENEM 1 GM/50ML(PMX) 50 ML IVPB ×3 (06:02→21:09)
[2017-08-18 07:48] LABS: WHITE BLOOD COUNT 57.3 10^3/ul (4.8-10.8)
[2017-08-18 07:48] LABS: ABNORMAL IP MESSAGE 1; HEMATOCRIT 21.4 % (42.0-52.0); HEMOGLOBIN 7.1 g/dl (14.0-18.0); MEAN CORPUSCULAR HEMOGLOBIN 29.1 pg (29.0-33.0); MEAN CORPUSCULAR HGB CONC 33.2 g/dl (32.0-37.0); MEAN CORPUSCULAR VOLUME 87.7 fl (82.0-101.0); MEAN PLATELET VOLUME 11.8 fl (7.4-10.4); POSITIVE DIFF @See below; RED BLOOD COUNT 2.44 10^6/ul (4.70-6.10); RED CELL DISTRIBUTION WIDTH 15.3 % (11.5-14.5)
[2017-08-18 07:49] LABS: ADD MAN DIFF? YES; PLATELET COUNT 38 10^3/UL (140-415)
[2017-08-18 08:15] LABS: ALANINE AMINOTRANSFERASE 36 IU/L (13-69); ALBUMIN/GLOBULIN RATIO 0.88; ALKALINE PHOSPHATASE 95 IU/L (42-121); ANION GAP 15 (8-16); ASPARTATE AMINO TRANSFERASE 21 IU/L (15-46); BILIRUBIN,INDIRECT 1.1 mg/dl (0-1.1); BILIRUBIN,TOTAL 1.1 mg/dl (0.2-1.3); BLOOD UREA NITROGEN 30 mg/dl (7-20); CALCIUM 8.4 mg/dl (8.4-10.2); CARBON DIOXIDE 24 mmol/L (21-31); CHLORIDE 102 mmol/L (97-110); CREATININE 0.95 mg/dl (0.61-1.24); GLUCOSE 187 mg/dl (70-220); POTASSIUM 3.7 mmol/L (3.5-5.1); SODIUM 137 mmol/L (135-144); TOTAL PROTEIN 6.4 g/dl (6.1-8.1)
[2017-08-18 08:22] LABS: PHOSPHORUS 2.5 mg/dl (2.5-4.9)
[2017-08-18 08:22] LABS: MAGNESIUM 2.1 mg/dl (1.7-2.5)
[2017-08-18] MEDS: METOPROLOL 25 MG TAB PO ×2 (08:30→21:09)
[2017-08-18] MEDS: FLUCONAZOLE 200 MG/NS (PMX) 100 ML IVPB (08:30)
[2017-08-18] MEDS: FAMOTIDINE 20 MG TAB PO ×2 (08:30→21:09)
[2017-08-18 08:56] LABS: ANISOCYTOSIS 1+ (0-0); BURR CELLS 1+ (0-0); LYMPHOCYTES #M 3.4 10^3/ul (0.8-2.9); LYMPHOCYTES % (M) 6 % (15-51); MICROCYTOSIS 1+ (0-0); MONOCYTE #M 2.2 10^3/ul (0.3-0.9); MONOCYTES % (M) 4 % (0-11); MYELOCYTES #M 1.1 10^3/ul (0.0-0.0); MYELOCYTES % (M) 2 % (0-0); PLATELET ESTIMATE SIG DECREASED; POLYCHROMASIA 2+ (0-0); PROMYELOCYTES #M 4.5 10^3/ul (0-0); PROMYELOCYTES % (M) 8 % (0-0); SEGMENTED NEUTROPHILS (M) % 2 % (39-77); SMUDGE%M 3 % (0-0)
[2017-08-18] MEDS: LINEZOLID 600 MG/D5W (PMX) 300 ML IVPB ×2 (10:00→21:09)
[2017-08-18 11:17] LABS: IMMEDIATE SPIN CROSSMATCH 1 2
[2017-08-18] MEDS: INSULIN ASPART [NOVOLOG] 3 ML PEN SC ×4 (11:23→21:00)
[2017-08-18] MEDS: DIPHENHYDRAMINE 25 MG CAP PO (11:40)
[2017-08-18] MEDS: FUROSEMIDE 40 MG INJ IV (11:40)
[2017-08-18] MEDS: ACYCLOVIR 400 MG TAB PO ×2 (13:50→21:08)
[2017-08-18] MEDS: metroNIDAZOLE 500 MG TAB PO ×2 (13:51→21:08)
[2017-08-18] MEDS: LACTOBACILLUS RHAMNOSUS CAP PO ×2 (14:00→21:08)
[2017-08-19] MEDS: ACCU-CHEK XX (02:21)
[2017-08-19] MEDS: ACETAMINOPHEN 325 MG TAB PO ×2 (02:26→19:41)
[2017-08-19] MEDS: metroNIDAZOLE 500 MG TAB PO ×3 (06:36→22:46)
[2017-08-19] MEDS: MEROPENEM 1 GM/50ML(PMX) 50 ML IVPB ×3 (06:36→22:47)
[2017-08-19] MEDS: INSULIN ASPART [NOVOLOG] 3 ML PEN SC ×4 (08:09→20:58)
[2017-08-19 08:27] LABS: WHITE BLOOD COUNT 60.2 10^3/ul (4.8-10.8)
[2017-08-19 08:27] LABS: ABNORMAL IP MESSAGE 1; HEMATOCRIT 27.9 % (42.0-52.0); HEMOGLOBIN 9.5 g/dl (14.0-18.0); MEAN CORPUSCULAR HEMOGLOBIN 29.7 pg (29.0-33.0); MEAN CORPUSCULAR HGB CONC 34.1 g/dl (32.0-37.0); MEAN CORPUSCULAR VOLUME 87.2 fl (82.0-101.0); MEAN PLATELET VOLUME 12.3 fl (7.4-10.4); POSITIVE DIFF @See below; RED CELL DISTRIBUTION WIDTH 15.6 % (11.5-14.5)
[2017-08-19] MEDS: FAMOTIDINE 20 MG TAB PO ×2 (08:39→20:49)
[2017-08-19] MEDS: LINEZOLID 600 MG/D5W (PMX) 300 ML IVPB ×2 (08:39→20:48)
[2017-08-19] MEDS: LACTOBACILLUS RHAMNOSUS CAP PO ×2 (08:39→20:49)
[2017-08-19] MEDS: ACYCLOVIR 400 MG TAB PO ×3 (08:39→20:49)
[2017-08-19] MEDS: FLUCONAZOLE 100 MG TAB PO (08:39)
[2017-08-19 08:40] LABS: MAGNESIUM 2.1 mg/dl (1.7-2.5)
[2017-08-19 08:40] LABS: PHOSPHORUS 3.3 mg/dl (2.5-4.9)
[2017-08-19] MEDS: METOPROLOL 25 MG TAB PO ×2 (08:40→20:49)
[2017-08-19 08:42] LABS: PLATELET COUNT 18 10^3/UL (140-415)
[2017-08-19 08:43] LABS: ADD MAN DIFF? YES
[2017-08-19 08:55] LABS: ANION GAP 14 (8-16); BLOOD UREA NITROGEN 21 mg/dl (7-20); CALCIUM 8.9 mg/dl (8.4-10.2); CARBON DIOXIDE 27 mmol/L (21-31); CHLORIDE 101 mmol/L (97-110); CREATININE 1.05 mg/dl (0.61-1.24); GLUCOSE 183 mg/dl (70-220); POTASSIUM 4.2 mmol/L (3.5-5.1); SODIUM 138 mmol/L (135-144)
[2017-08-19 10:29] LABS: ANISOCYTOSIS 1+ (0-0); BLAST% (M) 74.5 % (0-0); LYMPHOCYTES #M 8.4 10^3/ul (0.8-2.9); LYMPHOCYTES % (M) 14 % (15-51); MICROCYTOSIS 1+ (0-0); MONOCYTE #M 3.6 10^3/ul (0.3-0.9); MONOCYTES % (M) 6 % (0-11); MYELOCYTES #M 0.6 10^3/ul (0.0-0.0); MYELOCYTES % (M) 1 % (0-0); PLATELET ESTIMATE SIG DECREASED; POLYCHROMASIA 2+ (0-0); PROMYELOCYTES #M 2.4 10^3/ul (0-0); PROMYELOCYTES % (M) 4 % (0-0); SEGMENTED NEUTROPHILS (M) % 1 % (39-77); SMUDGE%M 3 % (0-0)
[2017-08-19] MEDS: DIPHENHYDRAMINE 25 MG CAP PO (21:26)
[2017-08-19 21:45] LABS: TYPE AND SCREEN 1
[2017-08-19] MEDS: SOD CHLORIDE 0.9% 250 ML IV* (21:50)
[2017-08-20] MEDS: ACCU-CHEK XX (02:00)
[2017-08-20] MEDS: metroNIDAZOLE 500 MG TAB PO ×3 (06:27→21:46)
[2017-08-20] MEDS: MEROPENEM 1 GM/50ML(PMX) 50 ML IVPB ×3 (06:27→21:41)
[2017-08-20 07:07] LABS: WHITE BLOOD COUNT 60.5 10^3/ul (4.8-10.8)
[2017-08-20 07:07] LABS: ABNORMAL IP MESSAGE 1; HEMATOCRIT 23.6 % (42.0-52.0); HEMOGLOBIN 8.1 g/dl (14.0-18.0); MEAN CORPUSCULAR HEMOGLOBIN 29.7 pg (29.0-33.0); MEAN CORPUSCULAR HGB CONC 34.3 g/dl (32.0-37.0); MEAN CORPUSCULAR VOLUME 86.4 fl (82.0-101.0); MEAN PLATELET VOLUME 9.9 fl (7.4-10.4); PLATELET COUNT 53 10^3/UL (140-415); POSITIVE DIFF @See below; RED BLOOD COUNT 2.73 10^6/ul (4.70-6.10); RED CELL DISTRIBUTION WIDTH 15.4 % (11.5-14.5)
[2017-08-20 07:17] LABS: ADD MAN DIFF? YES
[2017-08-20] MEDS: ACETAMINOPHEN 325 MG TAB PO (07:49)
[2017-08-20] MEDS: INSULIN ASPART [NOVOLOG] 3 ML PEN SC ×4 (07:52→20:38)
[2017-08-20] MEDS: FLUCONAZOLE 100 MG TAB PO (09:02)
[2017-08-20] MEDS: LACTOBACILLUS RHAMNOSUS CAP PO ×2 (09:02→20:27)
[2017-08-20] MEDS: ACYCLOVIR 400 MG TAB PO ×3 (09:02→20:27)
[2017-08-20] MEDS: FAMOTIDINE 20 MG TAB PO ×2 (09:02→20:27)
[2017-08-20] MEDS: METOPROLOL 25 MG TAB PO ×2 (09:03→20:28)
[2017-08-20] MEDS: LINEZOLID 600 MG/D5W (PMX) 300 ML IVPB ×2 (09:04→20:27)
[2017-08-20 09:06] LABS: ANISOCYTOSIS 1+ (0-0); BAND NEUTROPHILS #M 0.6 10^3/ul (0.0-0.6); BAND NEUTROPHILS % (M) 1 % (0-4); LYMPHOCYTES #M 3.6 10^3/ul (0.8-2.9); LYMPHOCYTES % (M) 6 % (15-51); MICROCYTOSIS 1+ (0-0); PLATELET ESTIMATE DECREASED; POLYCHROMASIA 1+ (0-0); PROMYELOCYTES #M 3.6 10^3/ul (0-0); PROMYELOCYTES % (M) 6 % (0-0); SEGMENTED NEUTROPHILS (M) % 1 % (39-77); SMUDGE%M 5 % (0-0)
[2017-08-20] MEDS: IBUPROFEN 400 MG TAB PO (16:34)
[2017-08-21] MEDS: ACCU-CHEK XX (02:05)
[2017-08-21] MEDS: metroNIDAZOLE 500 MG TAB PO ×2 (06:12→13:14)
[2017-08-21] MEDS: MEROPENEM 1 GM/50ML(PMX) 50 ML IVPB ×2 (06:13→13:15)
[2017-08-21] MEDS: FAMOTIDINE 20 MG TAB PO (08:26)
[2017-08-21] MEDS: FLUCONAZOLE 100 MG TAB PO (08:26)
[2017-08-21] MEDS: LACTOBACILLUS RHAMNOSUS CAP PO (08:27)
[2017-08-21] MEDS: ACYCLOVIR 400 MG TAB PO ×2 (08:27→13:14)
[2017-08-21] MEDS: LINEZOLID 600 MG/D5W (PMX) 300 ML IVPB (08:28)
[2017-08-21] MEDS: METOPROLOL 25 MG TAB PO (08:28)
[2017-08-21] MEDS: INSULIN ASPART [NOVOLOG] 3 ML PEN SC ×2 (08:31→12:04)
[2017-08-21 11:50] LABS: ABNORMAL IP MESSAGE 1; HEMATOCRIT 25.4 % (42.0-52.0); HEMOGLOBIN 8.5 g/dl (14.0-18.0); MEAN CORPUSCULAR HEMOGLOBIN 29.1 pg (29.0-33.0); MEAN CORPUSCULAR HGB CONC 33.5 g/dl (32.0-37.0); MEAN PLATELET VOLUME 9.5 fl (7.4-10.4); POSITIVE DIFF @See below; RED BLOOD COUNT 2.92 10^6/ul (4.70-6.10); RED CELL DISTRIBUTION WIDTH 15.7 % (11.5-14.5)
[2017-08-21 11:50] LABS: WHITE BLOOD COUNT 64.2 10^3/ul (4.8-10.8)
[2017-08-21 12:01] LABS: PLATELET COUNT 25 10^3/UL (140-415)
[2017-08-21 12:02] LABS: ADD MAN DIFF? YES
[2017-08-21 12:06] LABS: ANION GAP 15 (8-16); BLOOD UREA NITROGEN 18 mg/dl (7-20); CALCIUM 8.7 mg/dl (8.4-10.2); CARBON DIOXIDE 23 mmol/L (21-31); CHLORIDE 101 mmol/L (97-110); CREATININE 0.84 mg/dl (0.61-1.24); GLUCOSE 199 mg/dl (70-220); POTASSIUM 4.3 mmol/L (3.5-5.1); SODIUM 135 mmol/L (135-144)
[2017-08-21 12:50] LABS: INR 1.28; PROTIME 16.2 Sec (11.9-14.9); PT RATIO 1.3
[2017-08-21 12:51] LABS: PARTIAL THROMBOPLASTIN TIME 40.2 Sec (25.0-35.0)
[2017-08-21 13:03] LABS: ANISOCYTOSIS 1+ (0-0); BLAST% (M) 76.2 % (0-0); LYMPHOCYTES #M 8.9 10^3/ul (0.8-2.9); LYMPHOCYTES % (M) 14 % (15-51); MICROCYTOSIS 1+ (0-0); MONOCYTE #M 2.5 10^3/ul (0.3-0.9); MONOCYTES % (M) 4 % (0-11); PLATELET ESTIMATE SIG DECREASED; POIKILOCYTOSIS 1+ (0-0); PROMYELOCYTES #M 0.6 10^3/ul (0-0); PROMYELOCYTES % (M) 1 % (0-0); REACTIVE LYMPHOCYTES #M 1.9 10^3/ul (0.0-0.0); REACTIVE LYMPHOCYTES% (M) 3 % (0-0); SEGMENTED NEUTROPHILS (M) % 2 % (39-77); SMUDGE%M 8 % (0-0)
[2017-08-21] MEDS: LIDOCAINE 1% (MPF) 5 ML VIAL SC (15:40)
[2017-08-21] MEDS: SOD CHLORIDE 0.9% 100 ML (15:50)
== END 2017-08-21 17:12 | disposition home health service (06) | DRG 872 ==
LOC: TEL 21:10 → E/R 10:54 → MS3 13:50
PROC: 30233R1 Transfusion of Nonautologous Platelets into Peripheral Vein, Percutaneous Approach (ICD-10-PCS; principal; 2017-08-13)
PROC: 30233N1 Transfusion of Nonautologous Red Blood Cells into Peripheral Vein, Percutaneous Approach (ICD-10-PCS; 2017-08-15)
PROC: 02HV33Z Insertion of Infusion Device into Superior Vena Cava, Percutaneous Approach (ICD-10-PCS; 2017-08-21)
DX: A41.9 Sepsis, unspecified organism (principal); C92.02 Acute myeloblastic leukemia, in relapse; E11.8 Type 2 diabetes mellitus with unspecified complications; D69.6 Thrombocytopenia, unspecified; R13.10 Dysphagia, unspecified; L03.115 Cellulitis of right lower limb; N39.0 Urinary tract infection, site not specified; E11.9 Type 2 diabetes mellitus without complications; F41.9 Anxiety disorder, unspecified; I10 Essential (primary) hypertension; M79.81 Nontraumatic hematoma of soft tissue; B95.2 Enterococcus as the cause of diseases classified elsewhere; Z16.21 Resistance to vancomycin; R19.7 Diarrhea, unspecified; R53.1 Weakness; Z86.79 Personal history of other diseases of the circulatory system; Z87.891 Personal history of nicotine dependence
CPT/HCPCS: 36415; 36430; 36569; 70450; 71045; 73700; 76536; 76882-RT; 76937; 80048; 80053; 80202; 81001; 82550; 82962; 83605; 83735; 84100; 84484; 85025; 85049; 85362; 85378; 85384; 85610; 85670; 85730; 86644; 86850; 86900; 86901; 86920; 86945; 87040; 87075; 87086; 93005; 96374; 96375; 99291-25

== ENCOUNTER 2017-08-27 07:22 | Emergency (ER) | payer OTHER, MEDICAID ==
[2017-08-27 08:26] LABS: ABNORMAL IP MESSAGE 1; HEMATOCRIT 26.6 % (42.0-52.0); HEMOGLOBIN 8.8 g/dl (14.0-18.0); MEAN CORPUSCULAR HEMOGLOBIN 29.7 pg (29.0-33.0); MEAN CORPUSCULAR HGB CONC 33.1 g/dl (32.0-37.0); MEAN CORPUSCULAR VOLUME 89.9 fl (82.0-101.0); MEAN PLATELET VOLUME 9.3 fl (7.4-10.4); POSITIVE DIFF @See below; RED BLOOD COUNT 2.96 10^6/ul (4.70-6.10); RED CELL DISTRIBUTION WIDTH 15.4 % (11.5-14.5)
[2017-08-27 08:26] LABS: WHITE BLOOD COUNT 57.8 10^3/ul (4.8-10.8)
[2017-08-27 08:36] LABS: ADD MAN DIFF? YES; PLATELET COUNT 8 10^3/UL (140-415)
[2017-08-27 08:48] LABS: PROTIME 15.4 Sec (11.9-14.9); PT RATIO 1.2
[2017-08-27 08:49] LABS: ALANINE AMINOTRANSFERASE 30 IU/L (13-69); ALBUMIN 3.9 g/dl (3.3-4.9); ALBUMIN/GLOBULIN RATIO 1.08; ALKALINE PHOSPHATASE 94 IU/L (42-121); ANION GAP 16 (8-16); ASPARTATE AMINO TRANSFERASE 21 IU/L (15-46); BILIRUBIN,INDIRECT 0.2 mg/dl (0-1.1); BILIRUBIN,TOTAL 0.2 mg/dl (0.2-1.3); BLOOD UREA NITROGEN 27 mg/dl (7-20); CALCIUM 9.5 mg/dl (8.4-10.2); CARBON DIOXIDE 30 mmol/L (21-31); CHLORIDE 103 mmol/L (97-110); CREATININE 1.04 mg/dl (0.61-1.24); GLUCOSE 145 mg/dl (70-220); PARTIAL THROMBOPLASTIN TIME 32.2 Sec (25.0-35.0); POTASSIUM 5.2 mmol/L (3.5-5.1); SODIUM 144 mmol/L (135-144); TOTAL PROTEIN 7.5 g/dl (6.1-8.1)
[2017-08-27 11:08] LABS: ANISOCYTOSIS 1+ (0-0); BAND NEUTROPHILS #M 0.5 10^3/ul (0.0-0.6); BAND NEUTROPHILS % (M) 1 % (0-4); LYMPHOCYTES #M 5.2 10^3/ul (0.8-2.9); LYMPHOCYTES % (M) 9 % (15-51); MONOCYTE #M 3.4 10^3/ul (0.3-0.9); MONOCYTES % (M) 6 % (0-11); MYELOCYTES #M 0.5 10^3/ul (0.0-0.0); MYELOCYTES % (M) 1 % (0-0); PLATELET ESTIMATE SIG DECREASED; PROMYELOCYTES #M 2.3 10^3/ul (0-0); PROMYELOCYTES % (M) 4 % (0-0); SEGMENTED NEUTROPHILS (M) % 3 % (39-77); SMUDGE%M 3 % (0-0)
[2017-08-27] MEDS: INSULIN REGULAR, HUMAN 100 UNIT/1 ML 3ML VIAL SC (12:28)
[2017-08-27 13:40] LABS: TYPE AND SCREEN 1 1
[2017-08-27] MEDS: DIPHENHYDRAMINE 50 MG INJ IV (14:01)
== END 2017-08-27 17:08 | disposition home or self-care (01) ==
LOC: E/R 07:22
DX: D69.6 Thrombocytopenia, unspecified (principal); C92.00 Acute myeloblastic leukemia, not having achieved remission; Z79.84 Long term (current) use of oral hypoglycemic drugs
CPT/HCPCS: 36430; 80053; 82962; 85025; 85610; 85730; 86644; 86850; 86900; 86901; 86945; 96372; 96374; 99291-25

== ENCOUNTER 2017-09-01 06:35 | Inpatient (IN) | payer OTHER, MEDICAID ==
[2017-09-01 09:37] LABS: PROTIME 16.4 Sec (11.9-14.9); PT RATIO 1.3
[2017-09-01 09:38] LABS: PARTIAL THROMBOPLASTIN TIME 41.7 Sec (25.0-35.0)
[2017-09-01 09:39] LABS: LACTIC ACID 1.4 mmol/L (0.5-2.0)
[2017-09-01 09:40] LABS: ALANINE AMINOTRANSFERASE 33 IU/L (13-69); ALBUMIN/GLOBULIN RATIO 1.08; ALKALINE PHOSPHATASE 93 IU/L (42-121); AMYLASE 61 U/L (11-123); ANION GAP 18 (8-16); ASPARTATE AMINO TRANSFERASE 18 IU/L (15-46); BILIRUBIN,INDIRECT 0.5 mg/dl (0-1.1); BILIRUBIN,TOTAL 0.5 mg/dl (0.2-1.3); BLOOD UREA NITROGEN 24 mg/dl (7-20); CARBON DIOXIDE 25 mmol/L (21-31); CHLORIDE 101 mmol/L (97-110); CREATININE 2.02 mg/dl (0.61-1.24); GLUCOSE 205 mg/dl (70-220); LIPASE 40 U/L (23-300); SODIUM 140 mmol/L (135-144); TOTAL PROTEIN 7.7 g/dl (6.1-8.1)
[2017-09-01 09:48] LABS: WHITE BLOOD COUNT 78.4 10^3/ul (4.8-10.8)
[2017-09-01 09:48] LABS: ABNORMAL IP MESSAGE 1; HEMATOCRIT 22.2 % (42.0-52.0); HEMOGLOBIN 7.7 g/dl (14.0-18.0); MEAN CORPUSCULAR HGB CONC 34.7 g/dl (32.0-37.0); MEAN CORPUSCULAR VOLUME 86.4 fl (82.0-101.0); POSITIVE DIFF @See below; RED BLOOD COUNT 2.57 10^6/ul (4.70-6.10); RED CELL DISTRIBUTION WIDTH 14.8 % (11.5-14.5)
[2017-09-01 09:51] LABS: ADD MAN DIFF? YES; MEAN PLATELET VOLUME 11.4 fl (7.4-10.4); PLATELET COUNT 24 10^3/UL (140-415)
[2017-09-01 10:11] LABS: ANISOCYTOSIS 2+ (0-0); BAND NEUTROPHILS #M 2.3 10^3/ul (0.0-0.6); BAND NEUTROPHILS % (M) 3 % (0-4); LYMPHOCYTES #M 5.4 10^3/ul (0.8-2.9); LYMPHOCYTES % (M) 7 % (15-51); MICROCYTOSIS 2+ (0-0); MONOCYTE #M 7.8 10^3/ul (0.3-0.9); MONOCYTES % (M) 10 % (0-11); PLATELET ESTIMATE SIG DECREASED; POLYCHROMASIA 3+ (0-0); PROMYELOCYTES #M 3.9 10^3/ul (0-0); PROMYELOCYTES % (M) 5 % (0-0); SEG NEUT #M 9.6 10^3/ul (1.6-7.5); SEGMENTED NEUTROPHILS (M) % 10 % (39-77); SMUDGE%M 1 % (0-0)
[2017-09-01] MEDS: SOD CHLORIDE 0.9% 1,000 ML IV ×2 (11:09)
[2017-09-01 13:14] LABS: ADD UMIC YES; UR AMORPHOUS CRYSTAL FEW /HPF (NONE SEEN); UR ASCORBIC ACID 40 mg/dL (NEGATIVE); UR BACTERIA FEW /HPF (NONE SEEN); UR BILIRUBIN (Dip) NEGATIVE (NEGATIVE); UR BLOOD (Dip) NEGATIVE (NEGATIVE); UR CLARITY CLOUDY (CLEAR); UR COLOR AMBER (YELLOW); UR GLUCOSE (Dip) NEGATIVE (NEGATIVE); UR KETONES (Dip) NEGATIVE (NEGATIVE); UR LEUKOCYTE ESTERASE (Dip) TRACE Leu/ul (NEGATIVE); UR MUCUS FEW /HPF (NONE SEEN); UR NITRITE (Dip) NEGATIVE (NEGATIVE); UR RBC 0 /HPF (0-5); UR SPECIFIC GRAVITY (Dip) 1.015 (1.003-1.030); UR TOTAL PROTEIN (Dip) 3+ mg/dl (NEGATIVE); UR UROBILINOGEN (Dip) NEGATIVE (NEGATIVE); UR WBC 23 /HPF (0-5)
[2017-09-01] MEDS: SOD CHLORIDE 0.9% 500 ML IV ×2 (14:16→23:35)
[2017-09-01] MEDS ORDERED: ONDANSETRON 4 MG INJ (14:29)
[2017-09-01] MEDS: BELLADONNA/PHENOBARBITAL TAB PO (14:30)
[2017-09-01] MEDS: IBUPROFEN 800 MG TAB PO (14:30)
[2017-09-01] MEDS: LIDOCAINE/MYLANTA 40 ML BTL PO (14:30)
[2017-09-01] MEDS: CEFTRIAXONE 1 GM/50 ML (PMX) 50 ML IVPB (14:47)
[2017-09-01] MEDS: ONDANSETRON 4 MG INJ IV (14:47)
[2017-09-01] MEDS ORDERED: DIPHENHYDRAMINE 50 MG INJ (16:45)
[2017-09-01] MEDS: DIPHENHYDRAMINE 50 MG INJ IV (17:00)
[2017-09-01] MEDS: ACETAMINOPHEN 325 MG TAB PO (23:36)
[2017-09-02] MEDS ORDERED: DEXTROSE 50% 50 ML SYRINGE IV ×2 (02:30)
[2017-09-02] MEDS ORDERED: GLUCAGON 1 MG INJ IM (02:30)
[2017-09-02] MEDS ORDERED: GLUCOSE GEL 15 GRAM TUBE BUCCAL (02:30)
[2017-09-02] MEDS ORDERED: GLUCOSE GEL 15 GRAM TUBE PO ×2 (02:30)
[2017-09-02] MEDS: ACCU-CHEK XX ×2 (02:36→21:54)
[2017-09-02 04:59] LABS: WHITE BLOOD COUNT 60.5 10^3/ul (4.8-10.8)
[2017-09-02 04:59] LABS: ABNORMAL IP MESSAGE 1; HEMATOCRIT 20.6 % (42.0-52.0); HEMOGLOBIN 7.1 g/dl (14.0-18.0); MEAN CORPUSCULAR HEMOGLOBIN 29.6 pg (29.0-33.0); MEAN CORPUSCULAR HGB CONC 34.5 g/dl (32.0-37.0); MEAN CORPUSCULAR VOLUME 85.8 fl (82.0-101.0); MEAN PLATELET VOLUME 11.1 fl (7.4-10.4); POSITIVE DIFF @See below; RED CELL DISTRIBUTION WIDTH 15.3 % (11.5-14.5)
[2017-09-02 05:15] LABS: PLATELET COUNT 10 10^3/UL (140-415)
[2017-09-02 05:16] LABS: ADD MAN DIFF? YES
[2017-09-02 05:49] LABS: ALANINE AMINOTRANSFERASE 29 IU/L (13-69); ALBUMIN/GLOBULIN RATIO 0.85; ALKALINE PHOSPHATASE 77 IU/L (42-121); ANION GAP 15 (8-16); ASPARTATE AMINO TRANSFERASE 19 IU/L (15-46); BILIRUBIN,INDIRECT 0.5 mg/dl (0-1.1); BILIRUBIN,TOTAL 0.5 mg/dl (0.2-1.3); BLOOD UREA NITROGEN 33 mg/dl (7-20); CALCIUM 7.8 mg/dl (8.4-10.2); CARBON DIOXIDE 21 mmol/L (21-31); CHLORIDE 107 mmol/L (97-110); CREATININE 1.82 mg/dl (0.61-1.24); GLUCOSE 199 mg/dl (70-220); MAGNESIUM 2.1 mg/dl (1.7-2.5); PHOSPHORUS 4.2 mg/dl (2.5-4.9); SODIUM 139 mmol/L (135-144); TOTAL PROTEIN 6.5 g/dl (6.1-8.1)
[2017-09-02] MEDS: ACETAMINOPHEN 325 MG TAB PO ×4 (06:00→21:10)
[2017-09-02] MEDS: AMLODIPINE 5 MG TAB PO (08:15)
[2017-09-02] MEDS: LOSARTAN 50 MG TAB PO (08:15)
[2017-09-02] MEDS: METOPROLOL 25 MG TAB PO ×3 (08:15→21:00)
[2017-09-02 08:22] LABS: ANISOCYTOSIS 2+ (0-0); BAND NEUTROPHILS #M 0.6 10^3/ul (0.0-0.6); BAND NEUTROPHILS % (M) 1 % (0-4); LYMPHOCYTES #M 0.6 10^3/ul (0.8-2.9); LYMPHOCYTES % (M) 1 % (15-51); METAMYELOCYTES #M 1.2 10^3/ul (0.0-0.0); METAMYELOCYTES %M 2 % (0-0); MICROCYTOSIS 2+ (0-0); MONOCYTE #M 6.6 10^3/ul (0.3-0.9); MONOCYTES % (M) 11 % (0-11); MYELOCYTES #M 2.4 10^3/ul (0.0-0.0); MYELOCYTES % (M) 4 % (0-0); PLATELET ESTIMATE SIG DECREASED; POIKILOCYTOSIS 1+ (0-0); POLYCHROMASIA 3+ (0-0); PROMYELOCYTES #M 4.2 10^3/ul (0-0); PROMYELOCYTES % (M) 7 % (0-0); SEG NEUT #M 4.6 10^3/ul (1.6-7.5); SEGMENTED NEUTROPHILS (M) % 7 % (39-77); SMUDGE%M 5 % (0-0)
[2017-09-02] MEDS: INSULIN ASPART [NOVOLOG] 3 ML PEN SC ×4 (09:13→21:00)
[2017-09-02] MEDS: DIPHENHYDRAMINE 50 MG INJ IV (10:43)
[2017-09-02] MEDS ORDERED: NACL 0.9% 3 ML SYG IV (12:00)
[2017-09-02] MEDS ORDERED: BISACODYL 10 MG SUPP PR (12:00)
[2017-09-02] MEDS ORDERED: DOCUSATE SODIUM 100 MG CAP PO (12:00)
[2017-09-02] MEDS ORDERED: ACETAMINOPHEN 325 MG TAB PO (12:00)
[2017-09-02] MEDS ORDERED: MAGNESIUM HYDROXIDE 30ML CUP PO (12:00)
[2017-09-02] MEDS ORDERED: ONDANSETRON 4 MG INJ IV (12:00)
[2017-09-02] MEDS: FAMOTIDINE 20 MG TAB PO (12:30)
[2017-09-02] MEDS: CEFTRIAXONE 1 GM/50 ML (PMX) 50 ML IVPB (14:17)
[2017-09-02] MEDS: IBUPROFEN 600 MG TAB PO (15:28)
[2017-09-02 19:50] LABS: ABNORMAL IP MESSAGE 1; HEMATOCRIT 18.5 % (42.0-52.0); MEAN CORPUSCULAR HEMOGLOBIN 29.9 pg (29.0-33.0); MEAN CORPUSCULAR HGB CONC 34.1 g/dl (32.0-37.0); MEAN CORPUSCULAR VOLUME 87.7 fl (82.0-101.0); MEAN PLATELET VOLUME 8.9 fl (7.4-10.4); PLATELET COUNT 41 10^3/UL (140-415); POSITIVE DIFF @See below; RED BLOOD COUNT 2.11 10^6/ul (4.70-6.10); RED CELL DISTRIBUTION WIDTH 15.6 % (11.5-14.5)
[2017-09-02 19:50] LABS: WHITE BLOOD COUNT 73.6 10^3/ul (4.8-10.8)
[2017-09-02 20:03] LABS: HEMOGLOBIN 6.3 g/dl (14.0-18.0)
[2017-09-02 20:05] LABS: ADD MAN DIFF? YES
[2017-09-02 20:07] LABS: INR 1.47; PROTIME 18.1 Sec (11.9-14.9); PT RATIO 1.4
[2017-09-02 20:08] LABS: LACTIC ACID 1.4 mmol/L (0.5-2.0); URIC ACID 8.7 mg/dl (3.1-7.9)
[2017-09-02 20:09] LABS: PARTIAL THROMBOPLASTIN TIME 47.4 Sec (25.0-35.0)
[2017-09-02 21:38] LABS: ANISOCYTOSIS 1+ (0-0); ERYTHROBLAST% (NRBC) (M) 1 % (0-0); HYPOCHROMASIA 1+ (0-0); LYMPHOCYTES #M 13.2 10^3/ul (0.8-2.9); LYMPHOCYTES % (M) 18 % (15-51); METAMYELOCYTES #M 2.2 10^3/ul (0.0-0.0); METAMYELOCYTES %M 3 % (0-0); MICROCYTOSIS 1+ (0-0); MONOCYTE #M 3.6 10^3/ul (0.3-0.9); MONOCYTES % (M) 5 % (0-11); MYELOCYTES #M 1.4 10^3/ul (0.0-0.0); MYELOCYTES % (M) 2 % (0-0); PLATELET ESTIMATE DECREASED; PROMYELOCYTES #M 2.2 10^3/ul (0-0); PROMYELOCYTES % (M) 3 % (0-0); SEGMENTED NEUTROPHILS (M) % 6 % (39-77); SMUDGE%M 2 % (0-0)
[2017-09-02] MEDS: MEROPENEM 1 GM/50ML(PMX) 50 ML IVPB (23:25)
[2017-09-03 00:43] LABS: PROTIME 17.4 Sec (11.9-14.9); PT RATIO 1.4
[2017-09-03 00:44] LABS: PARTIAL THROMBOPLASTIN TIME 42.2 Sec (25.0-35.0)
[2017-09-03 00:50] LABS: D-DIMER 1172.69 ng/ml (<460)
[2017-09-03 01:26] LABS: FIBRIN SPLIT PRODUCT <10 ug/ml (<10)
[2017-09-03 01:26] LABS: PLATELET COUNT 35 10^3/UL (140-440)
[2017-09-03] MEDS: IBUPROFEN 600 MG TAB PO ×3 (02:32→21:05)
[2017-09-03] MEDS: ACETAMINOPHEN 325 MG TAB PO (03:27)
[2017-09-03 04:03] LABS: IMMEDIATE SPIN CROSSMATCH 1 6
[2017-09-03] MEDS: MEROPENEM 1 GM/50ML(PMX) 50 ML IVPB ×2 (08:13→20:34)
[2017-09-03] MEDS: METOPROLOL 25 MG TAB PO ×2 (08:13→21:45)
[2017-09-03] MEDS: FAMOTIDINE 20 MG TAB PO (08:13)
[2017-09-03] MEDS: INSULIN ASPART [NOVOLOG] 3 ML PEN SC ×4 (08:18→21:44)
[2017-09-03] MEDS ORDERED: ALPRAZOLAM 0.25 MG TAB PO (10:30)
[2017-09-03] MEDS: LORATADINE 10 MG TAB PO (11:53)
[2017-09-03] MEDS: CIPROFLOXACIN 200 MG/D5W IVPB 100 ML IVPB ×2 (11:58→21:45)
[2017-09-03] MEDS: HYDROCORTISONE 1% 26 GM RECT CR PR (12:49)
[2017-09-03] MEDS: FUROSEMIDE 20 MG INJ IV (13:40)
[2017-09-03 13:53] LABS: WHITE BLOOD COUNT 68.1 10^3/ul (4.8-10.8)
[2017-09-03 13:53] LABS: ABNORMAL IP MESSAGE 1; HEMATOCRIT 24.3 % (42.0-52.0); HEMOGLOBIN 8.5 g/dl (14.0-18.0); MEAN CORPUSCULAR HEMOGLOBIN 29.4 pg (29.0-33.0); MEAN CORPUSCULAR VOLUME 84.1 fl (82.0-101.0); MEAN PLATELET VOLUME 9.4 fl (7.4-10.4); POSITIVE DIFF @See below; RED BLOOD COUNT 2.89 10^6/ul (4.70-6.10); RED CELL DISTRIBUTION WIDTH 15.6 % (11.5-14.5)
[2017-09-03 13:57] LABS: ADD MAN DIFF? YES; PLATELET COUNT 22 10^3/UL (140-415)
[2017-09-03 14:11] LABS: MAGNESIUM 2.1 mg/dl (1.7-2.5)
[2017-09-03 14:11] LABS: PHOSPHORUS 2.6 mg/dl (2.5-4.9)
[2017-09-03 14:12] LABS: ALANINE AMINOTRANSFERASE 32 IU/L (13-69); ALBUMIN 3.3 g/dl (3.3-4.9); ALBUMIN/GLOBULIN RATIO 0.91; ALKALINE PHOSPHATASE 94 IU/L (42-121); ASPARTATE AMINO TRANSFERASE 22 IU/L (15-46); BILIRUBIN,INDIRECT 0.8 mg/dl (0-1.1); BILIRUBIN,TOTAL 0.8 mg/dl (0.2-1.3); BLOOD UREA NITROGEN 34 mg/dl (7-20); CALCIUM 8.5 mg/dl (8.4-10.2); CARBON DIOXIDE 22 mmol/L (21-31); CHLORIDE 105 mmol/L (97-110); GLUCOSE 223 mg/dl (70-220); SODIUM 138 mmol/L (135-144); TOTAL PROTEIN 6.9 g/dl (6.1-8.1)
[2017-09-03 14:18] LABS: ANION GAP 15 (8-16); POTASSIUM 4.1 mmol/L (3.5-5.1)
[2017-09-03 14:19] LABS: ANISOCYTOSIS 2+ (0-0); BAND NEUTROPHILS #M 4.7 10^3/ul (0.0-0.6); BAND NEUTROPHILS % (M) 7 % (0-4); LYMPHOCYTES % (M) 6 % (15-51); MICROCYTOSIS 2+ (0-0); MONOCYTES % (M) 6 % (0-11); MYELOCYTES #M 1.3 10^3/ul (0.0-0.0); MYELOCYTES % (M) 2 % (0-0); PLATELET ESTIMATE SIG DECREASED; POLYCHROMASIA 1+ (0-0); PROMYELOCYTES #M 10.2 10^3/ul (0-0); PROMYELOCYTES % (M) 15 % (0-0); REACTIVE LYMPHOCYTES #M 2.7 10^3/ul (0.0-0.0); REACTIVE LYMPHOCYTES% (M) 4 % (0-0); SEG NEUT #M 10.7 10^3/ul (1.6-7.5); SEGMENTED NEUTROPHILS (M) % 11 % (39-77); SMUDGE%M 2 % (0-0)
[2017-09-04] MEDS: AL HYDROX/MG HYDROX/SIMETH 30 ML CUP PO (00:34)
[2017-09-04] MEDS: ACCU-CHEK XX (01:57)
[2017-09-04 05:10] LABS: WHITE BLOOD COUNT 71.5 10^3/ul (4.8-10.8)
[2017-09-04 05:10] LABS: ABNORMAL IP MESSAGE 1; HEMATOCRIT 21.6 % (42.0-52.0); HEMOGLOBIN 7.6 g/dl (14.0-18.0); MEAN CORPUSCULAR HEMOGLOBIN 29.6 pg (29.0-33.0); MEAN CORPUSCULAR HGB CONC 35.2 g/dl (32.0-37.0); MEAN PLATELET VOLUME 9.8 fl (7.4-10.4); POSITIVE DIFF @See below; RED BLOOD COUNT 2.57 10^6/ul (4.70-6.10); RED CELL DISTRIBUTION WIDTH 15.9 % (11.5-14.5)
[2017-09-04 05:26] LABS: PLATELET COUNT 12 10^3/UL (140-415)
[2017-09-04 05:27] LABS: ADD MAN DIFF? YES
[2017-09-04 05:37] LABS: ANION GAP 14 (8-16); BLOOD UREA NITROGEN 33 mg/dl (7-20); CALCIUM 8.3 mg/dl (8.4-10.2); CARBON DIOXIDE 23 mmol/L (21-31); CHLORIDE 106 mmol/L (97-110); CREATININE 1.43 mg/dl (0.61-1.24); GLUCOSE 163 mg/dl (70-220); POTASSIUM 3.4 mmol/L (3.5-5.1); SODIUM 140 mmol/L (135-144)
[2017-09-04 05:43] LABS: MAGNESIUM 2.1 mg/dl (1.7-2.5)
[2017-09-04 07:16] LABS: ANISOCYTOSIS 2+ (0-0); BAND NEUTROPHILS #M 2.8 10^3/ul (0.0-0.6); BAND NEUTROPHILS % (M) 4 % (0-4); LYMPHOCYTES #M 4.2 10^3/ul (0.8-2.9); LYMPHOCYTES % (M) 6 % (15-51); MICROCYTOSIS 2+ (0-0); MONOCYTE #M 2.1 10^3/ul (0.3-0.9); MONOCYTES % (M) 3 % (0-11); MYELOCYTES #M 0.7 10^3/ul (0.0-0.0); MYELOCYTES % (M) 1 % (0-0); PLATELET ESTIMATE SIG DECREASED; POLYCHROMASIA 1+ (0-0); PROMYELOCYTES #M 2.8 10^3/ul (0-0); PROMYELOCYTES % (M) 4 % (0-0); SEG NEUT #M 7.7 10^3/ul (1.6-7.5); SEGMENTED NEUTROPHILS (M) % 8 % (39-77); SMUDGE%M 16 % (0-0)
[2017-09-04] MEDS: FAMOTIDINE 20 MG TAB PO (08:47)
[2017-09-04] MEDS: LORATADINE 10 MG TAB PO (08:48)
[2017-09-04] MEDS: METOPROLOL 25 MG TAB PO ×2 (08:48→20:17)
[2017-09-04] MEDS: INSULIN ASPART [NOVOLOG] 3 ML PEN SC ×4 (08:50→20:28)
[2017-09-04] MEDS: MEROPENEM 1 GM/50ML(PMX) 50 ML IVPB ×2 (08:51→20:06)
[2017-09-04] MEDS: CIPROFLOXACIN 200 MG/D5W IVPB 100 ML IVPB ×2 (10:10→20:06)
[2017-09-04] MEDS: DIPHENHYDRAMINE 25 MG CAP PO (10:51)
[2017-09-04] MEDS: ACETAMINOPHEN 325 MG TAB PO ×2 (10:51→20:18)
[2017-09-04] MEDS: POTASSIUM CHLORIDE (SR) 20 MEQ TAB PO (10:51)
[2017-09-04 13:36] LABS: TYPE AND SCREEN 1
[2017-09-04] MEDS: FOSFOMYCIN 3 GM PACKET PO (13:40)
[2017-09-04] MEDS: FUROSEMIDE 20 MG INJ IV (15:03)
[2017-09-04] MEDS: IBUPROFEN 600 MG TAB PO (16:34)
[2017-09-04 21:49] LABS: IMMEDIATE SPIN CROSSMATCH 1 2
[2017-09-04] MEDS: ONDANSETRON 4 MG INJ IV (21:55)
[2017-09-05] MEDS: ACCU-CHEK XX (01:37)
[2017-09-05] MEDS: ACETAMINOPHEN 325 MG TAB PO ×2 (05:28→23:24)
[2017-09-05 05:37] LABS: ABNORMAL IP MESSAGE 1; HEMATOCRIT 25.8 % (42.0-52.0); HEMOGLOBIN 8.9 g/dl (14.0-18.0); MEAN CORPUSCULAR HEMOGLOBIN 29.8 pg (29.0-33.0); MEAN CORPUSCULAR HGB CONC 34.5 g/dl (32.0-37.0); MEAN CORPUSCULAR VOLUME 86.3 fl (82.0-101.0); MEAN PLATELET VOLUME 11.2 fl (7.4-10.4); PLATELET COUNT 31 10^3/UL (140-415); POSITIVE DIFF @See below; RED BLOOD COUNT 2.99 10^6/ul (4.70-6.10); RED CELL DISTRIBUTION WIDTH 15.3 % (11.5-14.5)
[2017-09-05 05:37] LABS: WHITE BLOOD COUNT 71.1 10^3/ul (4.8-10.8)
[2017-09-05 05:51] LABS: ANION GAP 17 (8-16); BLOOD UREA NITROGEN 34 mg/dl (7-20); CALCIUM 8.7 mg/dl (8.4-10.2); CARBON DIOXIDE 22 mmol/L (21-31); CHLORIDE 107 mmol/L (97-110); CREATININE 1.47 mg/dl (0.61-1.24); GLUCOSE 198 mg/dl (70-220); POTASSIUM 3.9 mmol/L (3.5-5.1); SODIUM 142 mmol/L (135-144)
[2017-09-05 06:00] LABS: ADD MAN DIFF? YES
[2017-09-05 06:06] LABS: MAGNESIUM 2.2 mg/dl (1.7-2.5)
[2017-09-05 06:06] LABS: PHOSPHORUS 1.8 mg/dl (2.5-4.9)
[2017-09-05] MEDS: FAMOTIDINE 20 MG TAB PO (09:21)
[2017-09-05] MEDS: LORATADINE 10 MG TAB PO (09:21)
[2017-09-05] MEDS: METOPROLOL 25 MG TAB PO ×2 (09:21→21:00)
[2017-09-05] MEDS: MEROPENEM 1 GM/50ML(PMX) 50 ML IVPB ×2 (09:22→22:26)
[2017-09-05] MEDS: INSULIN ASPART [NOVOLOG] 3 ML PEN SC ×4 (09:26→21:00)
[2017-09-05] MEDS: CIPROFLOXACIN 200 MG/D5W IVPB 100 ML IVPB ×2 (10:00→21:00)
[2017-09-05 12:59] LABS: ANISOCYTOSIS 1+ (0-0); BAND NEUTROPHILS #M 0.7 10^3/ul (0.0-0.6); BAND NEUTROPHILS % (M) 1 % (0-4); BURR CELLS 1+ (0-0); GIANT THROMBO% (M) 1 % (0-0); LYMPHOCYTES #M 2.8 10^3/ul (0.8-2.9); LYMPHOCYTES % (M) 4 % (15-51); MONOCYTE #M 2.1 10^3/ul (0.3-0.9); MONOCYTES % (M) 3 % (0-11); MYELOCYTES #M 1.4 10^3/ul (0.0-0.0); MYELOCYTES % (M) 2 % (0-0); PLATELET ESTIMATE DECREASED; REACTIVE LYMPHOCYTES #M 9.9 10^3/ul (0.0-0.0); REACTIVE LYMPHOCYTES% (M) 14 % (0-0); SEG NEUT #M 3.3 10^3/ul (1.6-7.5); SEGMENTED NEUTROPHILS (M) % 4 % (39-77); SMUDGE%M 1 % (0-0)
[2017-09-05] MEDS: IBUPROFEN 600 MG TAB PO (18:52)
[2017-09-06] MEDS: ACCU-CHEK XX (01:34)
[2017-09-06 06:09] LABS: WHITE BLOOD COUNT 68.7 10^3/ul (4.8-10.8)
[2017-09-06 06:09] LABS: ABNORMAL IP MESSAGE 1; HEMATOCRIT 23.9 % (42.0-52.0); HEMOGLOBIN 8.1 g/dl (14.0-18.0); MEAN CORPUSCULAR HEMOGLOBIN 29.5 pg (29.0-33.0); MEAN CORPUSCULAR HGB CONC 33.9 g/dl (32.0-37.0); MEAN CORPUSCULAR VOLUME 86.9 fl (82.0-101.0); MEAN PLATELET VOLUME 11.9 fl (7.4-10.4); POSITIVE DIFF @See below; RED BLOOD COUNT 2.75 10^6/ul (4.70-6.10)
[2017-09-06 06:22] LABS: ADD MAN DIFF? YES; PLATELET COUNT 14 10^3/UL (140-415)
[2017-09-06 06:43] LABS: MAGNESIUM 2.3 mg/dl (1.7-2.5)
[2017-09-06 06:43] LABS: PHOSPHORUS 3.4 mg/dl (2.5-4.9)
[2017-09-06 06:44] LABS: ANION GAP 12 (8-16); BLOOD UREA NITROGEN 38 mg/dl (7-20); CALCIUM 8.4 mg/dl (8.4-10.2); CARBON DIOXIDE 24 mmol/L (21-31); CHLORIDE 107 mmol/L (97-110); CREATININE 1.27 mg/dl (0.61-1.24); GLUCOSE 177 mg/dl (70-220); POTASSIUM 3.7 mmol/L (3.5-5.1); SODIUM 139 mmol/L (135-144)
[2017-09-06 07:51] LABS: ANISOCYTOSIS 2+ (0-0); LYMPHOCYTES #M 5.4 10^3/ul (0.8-2.9); LYMPHOCYTES % (M) 8 % (15-51); MICROCYTOSIS 2+ (0-0); MONOCYTE #M 4.8 10^3/ul (0.3-0.9); MONOCYTES % (M) 7 % (0-11); MYELOCYTES #M 0.6 10^3/ul (0.0-0.0); MYELOCYTES % (M) 1 % (0-0); PLATELET ESTIMATE SIG DECREASED; POLYCHROMASIA 2+ (0-0); PROMYELOCYTES #M 4.8 10^3/ul (0-0); PROMYELOCYTES % (M) 7 % (0-0); SEGMENTED NEUTROPHILS (M) % 5 % (39-77); SMUDGE%M 4 % (0-0)
[2017-09-06] MEDS: CIPROFLOXACIN 200 MG/D5W IVPB 100 ML IVPB (08:14)
[2017-09-06] MEDS: LORATADINE 10 MG TAB PO (08:14)
[2017-09-06] MEDS: FAMOTIDINE 20 MG TAB PO (08:14)
[2017-09-06] MEDS: METOPROLOL 25 MG TAB PO ×2 (08:16→20:49)
[2017-09-06] MEDS: INSULIN ASPART [NOVOLOG] 3 ML PEN SC ×4 (08:17→20:51)
[2017-09-06] MEDS: MEROPENEM 1 GM/50ML(PMX) 50 ML IVPB (09:10)
[2017-09-06 11:46] LABS: TYPE AND SCREEN 1
[2017-09-06] MEDS: ACETAMINOPHEN 325 MG TAB PO (12:13)
[2017-09-06] MEDS: DIPHENHYDRAMINE 50 MG INJ IV (12:14)
[2017-09-06] MEDS: FOSFOMYCIN 3 GM PACKET PO (13:52)
[2017-09-06] MEDS: FUROSEMIDE 20 MG INJ IV (13:52)
[2017-09-06] MEDS: CIPROFLOXACIN 500 MG TAB PO (17:40)
[2017-09-06] MEDS: AL HYDROX/MG HYDROX/SIMETH 30 ML CUP PO (23:13)
[2017-09-07] MEDS: ACCU-CHEK XX (02:32)
[2017-09-07] MEDS: CIPROFLOXACIN 500 MG TAB PO ×2 (05:50→18:08)
[2017-09-07] MEDS: METOPROLOL 25 MG TAB PO ×3 (09:01→21:05)
[2017-09-07] MEDS: FAMOTIDINE 20 MG TAB PO ×2 (09:02→09:08)
[2017-09-07] MEDS: LORATADINE 10 MG TAB PO ×2 (09:03→09:07)
[2017-09-07] MEDS: INSULIN ASPART [NOVOLOG] 3 ML PEN SC ×4 (09:13→21:00)
[2017-09-07 13:50] LABS: ABNORMAL IP MESSAGE 1; HEMATOCRIT 25.2 % (42.0-52.0); HEMOGLOBIN 8.5 g/dl (14.0-18.0); MEAN CORPUSCULAR HEMOGLOBIN 29.6 pg (29.0-33.0); MEAN CORPUSCULAR HGB CONC 33.7 g/dl (32.0-37.0); MEAN CORPUSCULAR VOLUME 87.8 fl (82.0-101.0); MEAN PLATELET VOLUME 10.7 fl (7.4-10.4); POSITIVE DIFF @See below; RED BLOOD COUNT 2.87 10^6/ul (4.70-6.10); RED CELL DISTRIBUTION WIDTH 15.6 % (11.5-14.5)
[2017-09-07 13:50] LABS: WHITE BLOOD COUNT 74.9 10^3/ul (4.8-10.8)
[2017-09-07 13:55] LABS: PLATELET COUNT 18 10^3/UL (140-415)
[2017-09-07 13:56] LABS: ADD MAN DIFF? YES
[2017-09-07 14:33] LABS: BAND NEUTROPHILS #M 1.4 10^3/ul (0.0-0.6); BAND NEUTROPHILS % (M) 2 % (0-4); BLAST% (M) 74.3 % (0-0); LYMPHOCYTES #M 3.7 10^3/ul (0.8-2.9); LYMPHOCYTES % (M) 5 % (15-51); METAMYELOCYTES #M 1.4 10^3/ul (0.0-0.0); METAMYELOCYTES %M 2 % (0-0); MONOCYTE #M 6.7 10^3/ul (0.3-0.9); MONOCYTES % (M) 9 % (0-11); MYELOCYTES #M 1.4 10^3/ul (0.0-0.0); MYELOCYTES % (M) 2 % (0-0); PLATELET ESTIMATE SIG DECREASED; POIKILOCYTOSIS 3+ (0-0); PROMYELOCYTES #M 1.4 10^3/ul (0-0); PROMYELOCYTES % (M) 2 % (0-0); REACTIVE LYMPHOCYTES #M 2.2 10^3/ul (0.0-0.0); REACTIVE LYMPHOCYTES% (M) 3 % (0-0); SEG NEUT #M 2.5 10^3/ul (1.6-7.5); SEGMENTED NEUTROPHILS (M) % 2 % (39-77); SMUDGE%M 8 % (0-0)
[2017-09-07] MEDS: DIPHENHYDRAMINE 50 MG INJ IV (16:19)
[2017-09-07] MEDS: ACETAMINOPHEN 325 MG TAB PO (16:21)
[2017-09-07] MEDS: SOD CHLORIDE 0.9% 250 ML IV* (16:32)
[2017-09-07] MEDS: FLUCONAZOLE 100 MG TAB PO (17:12)
[2017-09-07 18:55] LABS: IMMEDIATE SPIN CROSSMATCH 1 4
== END 2017-09-07 22:15 | disposition home health service (06) | DRG 871 ==
LOC: MS1 23:36 → E/R 06:35
PROC: 30243N1 Transfusion of Nonautologous Red Blood Cells into Central Vein, Percutaneous Approach (ICD-10-PCS; 2017-09-01)
PROC: 30243R1 Transfusion of Nonautologous Platelets into Central Vein, Percutaneous Approach (ICD-10-PCS; principal; 2017-09-02)
DX: A41.9 Sepsis, unspecified organism (principal); J18.9 Pneumonia, unspecified organism; N17.9 Acute kidney failure, unspecified; C92.00 Acute myeloblastic leukemia, not having achieved remission; D70.9 Neutropenia, unspecified; N39.0 Urinary tract infection, site not specified; B37.0 Candidal stomatitis; Z66 Do not resuscitate; I10 Essential (primary) hypertension; E11.9 Type 2 diabetes mellitus without complications; F41.9 Anxiety disorder, unspecified; B96.89 Other specified bacterial agents as the cause of diseases classified elsewhere; R50.81 Fever presenting with conditions classified elsewhere; R21 Rash and other nonspecific skin eruption
CPT/HCPCS: 36415; 36430; 70450; 71045; 71250; 74176; 76775; 80048; 80053; 81001; 82150; 82962; 83605; 83690; 83735; 84100; 84560; 85025; 85049; 85362; 85378; 85384; 85610; 85670; 85730; 86644; 86850; 86900; 86901; 86920; 86945; 87040; 87081; 87086; 93005; 96374; 96375; 99285-25; J1940

== ENCOUNTER 2017-09-11 22:53 | Inpatient (IN) | payer OTHER, MEDICAID ==
[2017-09-12 01:34] LABS: ABNORMAL IP MESSAGE 1; HEMATOCRIT 22.8 % (42.0-52.0); HEMOGLOBIN 7.5 g/dl (14.0-18.0); MEAN CORPUSCULAR HEMOGLOBIN 29.4 pg (29.0-33.0); MEAN CORPUSCULAR HGB CONC 32.9 g/dl (32.0-37.0); MEAN CORPUSCULAR VOLUME 89.4 fl (82.0-101.0); POSITIVE DIFF @See below; RED BLOOD COUNT 2.55 10^6/ul (4.70-6.10); RED CELL DISTRIBUTION WIDTH 15.4 % (11.5-14.5)
[2017-09-12 01:34] LABS: WHITE BLOOD COUNT 86.6 10^3/ul (4.8-10.8)
[2017-09-12 01:50] LABS: ALANINE AMINOTRANSFERASE 39 IU/L (13-69); ALBUMIN 3.5 g/dl (3.3-4.9); ALBUMIN/GLOBULIN RATIO 1.12; ALKALINE PHOSPHATASE 137 IU/L (42-121); ANION GAP 19 (8-16); ASPARTATE AMINO TRANSFERASE 24 IU/L (15-46); BILIRUBIN,INDIRECT 0.4 mg/dl (0-1.1); BILIRUBIN,TOTAL 0.4 mg/dl (0.2-1.3); BLOOD UREA NITROGEN 27 mg/dl (7-20); CALCIUM 8.4 mg/dl (8.4-10.2); CARBON DIOXIDE 20 mmol/L (21-31); CHLORIDE 104 mmol/L (97-110); GLUCOSE 141 mg/dl (70-220); POTASSIUM 3.8 mmol/L (3.5-5.1); SODIUM 139 mmol/L (135-144); TOTAL PROTEIN 6.6 g/dl (6.1-8.1)
[2017-09-12 01:55] LABS: PLATELET COUNT 2 10^3/UL (140-415)
[2017-09-12 01:56] LABS: ADD MAN DIFF? YES
[2017-09-12 01:58] LABS: INR 1.13; PROTIME 14.7 Sec (11.9-14.9); PT RATIO 1.1
[2017-09-12 01:59] LABS: PARTIAL THROMBOPLASTIN TIME 36.3 Sec (25.0-35.0)
[2017-09-12 02:01] LABS: TROPONIN-I < 0.012 ng/ml (0.00-0.12)
[2017-09-12 02:05] LABS: LACTIC ACID 1.5 mmol/L (0.5-2.0)
[2017-09-12 02:36] LABS: ADD UMIC YES; UR ASCORBIC ACID 40 mg/dL (NEGATIVE); UR BILIRUBIN (Dip) NEGATIVE (NEGATIVE); UR BLOOD (Dip) 3+ mg/dL (NEGATIVE); UR CLARITY CLOUDY (CLEAR); UR COLOR RED (YELLOW); UR GLUCOSE (Dip) NEGATIVE (NEGATIVE); UR KETONES (Dip) NEGATIVE (NEGATIVE); UR LEUKOCYTE ESTERASE (Dip) TRACE Leu/ul (NEGATIVE); UR NITRITE (Dip) NEGATIVE (NEGATIVE); UR RBC > 182 /HPF (0-5); UR SPECIFIC GRAVITY (Dip) 1.013 (1.003-1.030); UR TOTAL PROTEIN (Dip) 2+ mg/dl (NEGATIVE); UR UROBILINOGEN (Dip) NEGATIVE (NEGATIVE); UR WBC > 182 /HPF (0-5)
[2017-09-12] MEDS ORDERED: ONDANSETRON 4 MG INJ IV (03:00)
[2017-09-12] MEDS ORDERED: DOCUSATE SODIUM 100 MG CAP PO (03:00)
[2017-09-12] MEDS ORDERED: morphine 2 MG INJ IV (03:00)
[2017-09-12] MEDS ORDERED: LORAZEPAM 0.5 MG TAB PO (03:00)
[2017-09-12] MEDS ORDERED: HYDROCODONE/APAP (5/325) TAB PO (03:00)
[2017-09-12] MEDS ORDERED: NACL 0.9% 3 ML SYG IV (03:00)
[2017-09-12] MEDS ORDERED: BISACODYL (EC) 5 MG TAB PO (03:00)
[2017-09-12] MEDS ORDERED: LOSARTAN 50 MG TAB PO (03:30)
[2017-09-12] MEDS ORDERED: METOPROLOL 50 MG TAB PO (03:30)
[2017-09-12] MEDS ORDERED: VANCOMYCIN IV PER PHARMACY XX (03:30)
[2017-09-12] MEDS: SOD CHLORIDE 0.9% 250 ML IV* (03:52)
[2017-09-12 03:55] LABS: LACTIC ACID 1.8 mmol/L (0.5-2.0)
[2017-09-12] MEDS: ACETAMINOPHEN 325 MG TAB PO ×2 (03:56→11:52)
[2017-09-12] MEDS: DIPHENHYDRAMINE 50 MG INJ IV ×3 (03:56→21:27)
[2017-09-12] MEDS ORDERED: GLUCOSE GEL 15 GRAM TUBE BUCCAL (04:00)
[2017-09-12] MEDS ORDERED: GLUCAGON 1 MG INJ IM (04:00)
[2017-09-12] MEDS ORDERED: DEXTROSE 50% 50 ML SYRINGE IV ×2 (04:00)
[2017-09-12] MEDS ORDERED: GLUCOSE GEL 15 GRAM TUBE PO ×2 (04:00)
[2017-09-12] MEDS: SOD CHLORIDE 0.9% 1,000 ML IV (04:02)
[2017-09-12] MEDS: FLUCONAZOLE 200 MG/NS (PMX) 100 ML IVPB (04:38)
[2017-09-12] MEDS: LOSARTAN 50 MG TAB PO (04:41)
[2017-09-12] MEDS: PIPER-TAZO 3.375 GM IV (PMX) 100 ML IVPB (05:27)
[2017-09-12 05:39] LABS: TYPE AND SCREEN 1
[2017-09-12 06:03] LABS: LACTIC ACID 1.8 mmol/L (0.5-2.0)
[2017-09-12 07:15] LABS: IMMEDIATE SPIN CROSSMATCH 1 2
[2017-09-12 07:49] LABS: LYMPHOCYTES # 6.9 10^3/ul (0.8-2.9); LYMPHOCYTES #M 6.9 10^3/ul (0.8-2.9); LYMPHOCYTES % (M) 8 % (15-51); MONOCYTE # 5.2 10^3/ul (0.3-0.9); MONOCYTE #M 5.1 10^3/ul (0.3-0.9); MONOCYTES % (M) 6 % (0-11); SEGMENTED NEUTROPHILS (M) % 10 % (39-77)
[2017-09-12 07:51] LABS: ANISOCYTOSIS 1+ (0-0); POIKILOCYTOSIS 1+ (0-0)
[2017-09-12 07:53] LABS: PLATELET ESTIMATE SIG DECREASED
[2017-09-12] MEDS: VANCOMYCIN 1.5 GM in SOD CHLORIDE 0.9% 250 ML IVPB (10:20)
[2017-09-12] MEDS: LACTOBACILLUS RHAMNOSUS CAP PO ×2 (10:20→21:28)
[2017-09-12] MEDS: FAMOTIDINE 20 MG INJ IV ×2 (10:20→21:28)
[2017-09-12] MEDS: FUROSEMIDE 40 MG INJ IV (10:20)
[2017-09-12] MEDS: INSULIN ASPART [NOVOLOG] 3 ML PEN SC ×3 (10:21→17:10)
[2017-09-12] MEDS: LORATADINE 10 MG TAB PO (10:24)
[2017-09-12] MEDS: NYSTATIN SUSP 5 ML CUP PO ×3 (14:09→21:28)
[2017-09-12] MEDS: METOPROLOL 25 MG TAB PO ×2 (15:31→21:28)
[2017-09-12] MEDS: CIPROFLOXACIN 500 MG TAB PO (18:07)
[2017-09-12 18:31] LABS: OCCULT BLOOD STOOL NEGATIVE (NEGATIVE)
[2017-09-12 20:32] LABS: ABNORMAL IP MESSAGE 1; HEMATOCRIT 25.6 % (42.0-52.0); HEMOGLOBIN 8.6 g/dl (14.0-18.0); MEAN CORPUSCULAR HEMOGLOBIN 29.8 pg (29.0-33.0); MEAN CORPUSCULAR HGB CONC 33.6 g/dl (32.0-37.0); MEAN CORPUSCULAR VOLUME 88.6 fl (82.0-101.0); MEAN PLATELET VOLUME 9.6 fl (7.4-10.4); PLATELET COUNT 51 10^3/UL (140-415); POSITIVE DIFF @See below; RED BLOOD COUNT 2.89 10^6/ul (4.70-6.10)
[2017-09-12 20:32] LABS: WHITE BLOOD COUNT 84.3 10^3/ul (4.8-10.8)
[2017-09-12 20:36] LABS: ADD MAN DIFF? YES
[2017-09-12 21:04] LABS: ANISOCYTOSIS 1+ (0-0); BLAST% (M) 71.3 % (0-0); LYMPHOCYTES #M 10.1 10^3/ul (0.8-2.9); LYMPHOCYTES % (M) 12 % (15-51); MICROCYTOSIS 1+ (0-0); MONOCYTE #M 13.4 10^3/ul (0.3-0.9); MONOCYTES % (M) 16 % (0-11); PLATELET MORPHOLOGY COMMENT @See below; POIKILOCYTOSIS 1+ (0-0); SEGMENTED NEUTROPHILS (M) % 1 % (39-77); SMUDGE%M 9 % (0-0)
[2017-09-12] MEDS ORDERED: VANCOMYCIN 1 GM 250 ML IVPB (22:00)
[2017-09-12] MEDS: hydrALAzine 20 MG INJ IV (23:20)
[2017-09-13] MEDS: AMLODIPINE 5 MG TAB PO (00:12)
[2017-09-13] MEDS: ACCU-CHEK XX (02:00)
[2017-09-13 05:55] LABS: ABNORMAL IP MESSAGE 1; HEMATOCRIT 24.6 % (42.0-52.0); HEMOGLOBIN 8.4 g/dl (14.0-18.0); MEAN CORPUSCULAR HEMOGLOBIN 30.3 pg (29.0-33.0); MEAN CORPUSCULAR HGB CONC 34.1 g/dl (32.0-37.0); MEAN CORPUSCULAR VOLUME 88.8 fl (82.0-101.0); MEAN PLATELET VOLUME 10.4 fl (7.4-10.4); PLATELET COUNT 42 10^3/UL (140-415); POSITIVE DIFF @See below; RED BLOOD COUNT 2.77 10^6/ul (4.70-6.10); RED CELL DISTRIBUTION WIDTH 14.9 % (11.5-14.5)
[2017-09-13 06:11] LABS: ADD MAN DIFF? YES
[2017-09-13] MEDS: CIPROFLOXACIN 500 MG TAB PO (06:23)
[2017-09-13 06:51] LABS: ALANINE AMINOTRANSFERASE 33 IU/L (13-69); ALBUMIN 3.4 g/dl (3.3-4.9); ALBUMIN/GLOBULIN RATIO 1.09; ALKALINE PHOSPHATASE 108 IU/L (42-121); ANION GAP 16 (8-16); ASPARTATE AMINO TRANSFERASE 44 IU/L (15-46); BILIRUBIN,INDIRECT 0.5 mg/dl (0-1.1); BILIRUBIN,TOTAL 0.5 mg/dl (0.2-1.3); BLOOD UREA NITROGEN 27 mg/dl (7-20); CALCIUM 8.5 mg/dl (8.4-10.2); CARBON DIOXIDE 23 mmol/L (21-31); CHLORIDE 108 mmol/L (97-110); CREATININE 1.55 mg/dl (0.61-1.24); GLUCOSE 177 mg/dl (70-220); MAGNESIUM 2.2 mg/dl (1.7-2.5); POTASSIUM 3.3 mmol/L (3.5-5.1); SODIUM 144 mmol/L (135-144); TOTAL PROTEIN 6.5 g/dl (6.1-8.1)
[2017-09-13 08:13] LABS: ANISOCYTOSIS 2+ (0-0); BAND NEUTROPHILS #M 0.7 10^3/ul (0.0-0.6); BAND NEUTROPHILS % (M) 1 % (0-4); LYMPHOCYTES % (M) 4 % (15-51); MICROCYTOSIS 2+ (0-0); MONOCYTE #M 4.6 10^3/ul (0.3-0.9); MONOCYTES % (M) 6 % (0-11); MYELOCYTES #M 3.8 10^3/ul (0.0-0.0); MYELOCYTES % (M) 5 % (0-0); PLATELET ESTIMATE SIG DECREASED; PROMYELOCYTES #M 5.3 10^3/ul (0-0); PROMYELOCYTES % (M) 7 % (0-0); SEG NEUT #M 2.8 10^3/ul (1.6-7.5); SEGMENTED NEUTROPHILS (M) % 3 % (39-77); SMUDGE%M 9 % (0-0)
[2017-09-13] MEDS: NYSTATIN SUSP 5 ML CUP PO (08:56)
[2017-09-13] MEDS: LACTOBACILLUS RHAMNOSUS CAP PO (08:56)
[2017-09-13] MEDS: FAMOTIDINE 20 MG INJ IV (08:56)
[2017-09-13] MEDS: LORATADINE 10 MG TAB PO (08:58)
[2017-09-13] MEDS: LOSARTAN 50 MG TAB PO (08:58)
[2017-09-13] MEDS: INSULIN ASPART [NOVOLOG] 3 ML PEN SC (08:59)
[2017-09-13] MEDS: FLUCONAZOLE 200 MG TAB PO (09:00)
[2017-09-13] MEDS: ACETAMINOPHEN 325 MG TAB PO (09:01)
[2017-09-13] MEDS: POTASSIUM CHLORIDE (SR) 20 MEQ TAB PO (10:06)
[2017-09-13 11:53] LABS: PRETRANSFUSION BILIRUBIN 0.2 mg/dl
[2017-09-13 11:54] LABS: POST-TRANSFUSION BILIRUBIN 0.4 mg/dl
== END 2017-09-13 11:27 | disposition home health service (06) | DRG 835 ==
LOC: MS1 09-12 23:59 → E/R 22:53 → MS3 09-12 03:00
PROC: 6A550Z2 Pheresis of Platelets, Single (ICD-10-PCS; principal; 2017-09-12)
PROC: 30233N1 Transfusion of Nonautologous Red Blood Cells into Peripheral Vein, Percutaneous Approach (ICD-10-PCS; 2017-09-12)
DX: C92.00 Acute myeloblastic leukemia, not having achieved remission (principal); N39.0 Urinary tract infection, site not specified; D69.6 Thrombocytopenia, unspecified; E11.22 Type 2 diabetes mellitus with diabetic chronic kidney disease; D70.8 Other neutropenia; B37.9 Candidiasis, unspecified; B96.89 Other specified bacterial agents as the cause of diseases classified elsewhere; I12.9 Hypertensive chronic kidney disease with stage 1 through stage 4 chronic kidney disease, or unspecified chronic kidney disease; N18.2 Chronic kidney disease, stage 2 (mild); F41.9 Anxiety disorder, unspecified; D64.9 Anemia, unspecified; Z86.73 Personal history of transient ischemic attack (TIA), and cerebral infarction without residual deficits
CPT/HCPCS: 36415; 36430; 71045; 80053; 81001; 82270; 82962; 83605; 83735; 84484; 85025; 85384; 85610; 85730; 86078; 86644; 86850; 86900; 86901; 86920; 86945; 87040; 87086; 93005; 96374; 96375; 99285-25

== ENCOUNTER 2017-09-27 05:50 | Inpatient (IN) | payer OTHER, MEDICAID ==
[2017-09-27] MEDS: SOD CHLORIDE 0.9% 500 ML IV (06:43)
[2017-09-27 07:10] LABS: WHITE BLOOD COUNT 105.6 10^3/ul (4.8-10.8)
[2017-09-27 07:10] LABS: ABNORMAL IP MESSAGE 1; HEMATOCRIT 15.2 % (42.0-52.0); MEAN CORPUSCULAR HEMOGLOBIN 29.4 pg (29.0-33.0); MEAN CORPUSCULAR HGB CONC 34.2 g/dl (32.0-37.0); MEAN CORPUSCULAR VOLUME 85.9 fl (82.0-101.0); MEAN PLATELET VOLUME 9.6 fl (7.4-10.4); POSITIVE DIFF @See below; RED BLOOD COUNT 1.77 10^6/ul (4.70-6.10); RED CELL DISTRIBUTION WIDTH 15.1 % (11.5-14.5)
[2017-09-27] MEDS: ONDANSETRON 4 MG INJ IV ×2 (07:10→18:30)
[2017-09-27] MEDS: HYDROmorphONE 0.5 MG/0.5 ML SYG IV (07:10)
[2017-09-27 07:27] LABS: INR 1.34; PROTIME 16.8 Sec (11.9-14.9); PT RATIO 1.3
[2017-09-27 07:28] LABS: PARTIAL THROMBOPLASTIN TIME 43.5 Sec (25.0-35.0)
[2017-09-27 07:29] LABS: PLATELET COUNT 28 10^3/UL (140-415)
[2017-09-27 07:30] LABS: ADD MAN DIFF? YES; HEMOGLOBIN 5.2 g/dl (14.0-18.0)
[2017-09-27 07:36] LABS: ANION GAP 18 (8-16); BLOOD UREA NITROGEN 49 mg/dl (7-20); CALCIUM 8.3 mg/dl (8.4-10.2); CARBON DIOXIDE 19 mmol/L (21-31); CHLORIDE 105 mmol/L (97-110); CREATININE 2.67 mg/dl (0.61-1.24); GLUCOSE 193 mg/dl (70-220); POTASSIUM 4.2 mmol/L (3.5-5.1); SODIUM 138 mmol/L (135-144)
[2017-09-27] MEDS: SOD CHLORIDE 0.9% 250 ML IV (07:48)
[2017-09-27 07:55] LABS: TROPONIN-I < 0.012 ng/ml (0.00-0.12)
[2017-09-27 08:02] LABS: ANISOCYTOSIS 2+ (0-0); BAND NEUTROPHILS #M 3.1 10^3/ul (0.0-0.6); BAND NEUTROPHILS % (M) 3 % (0-4); BLAST% (M) 65.7 % (0-0); LYMPHOCYTES #M 10.5 10^3/ul (0.8-2.9); LYMPHOCYTES % (M) 10 % (15-51); METAMYELOCYTES #M 2.1 10^3/ul (0.0-0.0); METAMYELOCYTES %M 2 % (0-0); MICROCYTOSIS 2+ (0-0); MONOCYTE #M 7.3 10^3/ul (0.3-0.9); MONOCYTES % (M) 7 % (0-11); MYELOCYTES #M 2.1 10^3/ul (0.0-0.0); MYELOCYTES % (M) 2 % (0-0); PLATELET ESTIMATE SIG DECREASED; PROMYELOCYTES #M 6.3 10^3/ul (0-0); PROMYELOCYTES % (M) 6 % (0-0); SEG NEUT #M 9.6 10^3/ul (1.6-7.5); SEGMENTED NEUTROPHILS (M) % 6 % (39-77); SMUDGE%M 7 % (0-0)
[2017-09-27] MEDS ORDERED: DIPHENHYDRAMINE 50 MG INJ (08:57)
[2017-09-27] MEDS: DIPHENHYDRAMINE 50 MG INJ IV (09:22)
[2017-09-27 09:23] LABS: ADD UMIC YES; UR AMORPHOUS CRYSTAL FEW /HPF (NONE SEEN); UR ASCORBIC ACID 40 mg/dL (NEGATIVE); UR BACTERIA FEW /HPF (NONE SEEN); UR BILIRUBIN (Dip) NEGATIVE (NEGATIVE); UR BLOOD (Dip) 3+ mg/dL (NEGATIVE); UR CLARITY CLOUDY (CLEAR); UR COLOR AMBER (YELLOW); UR GLUCOSE (Dip) 1+ mg/dL (NEGATIVE); UR KETONES (Dip) NEGATIVE (NEGATIVE); UR LEUKOCYTE ESTERASE (Dip) 1+ Leu/ul (NEGATIVE); UR NITRITE (Dip) NEGATIVE (NEGATIVE); UR NONSQUAMOUS EPITHELIAL CELL 1 /HPF (NONE SEEN); UR RBC 0 /HPF (0-5); UR SPECIFIC GRAVITY (Dip) 1.014 (1.003-1.030); UR SQUAMOUS EPITHELIAL CELL FEW /HPF (FEW); UR TOTAL PROTEIN (Dip) 2+ mg/dl (NEGATIVE); UR UROBILINOGEN (Dip) NEGATIVE (NEGATIVE); UR WBC 45 /HPF (0-5)
[2017-09-27] MEDS ORDERED: ACETAMINOPHEN 500 MG TAB (11:45)
[2017-09-27] MEDS: ACETAMINOPHEN 500 MG TAB PO (12:04)
[2017-09-27] MEDS: CEFTRIAXONE 1 GM/50 ML (PMX) 50 ML IVPB (12:06)
[2017-09-27 15:09] LABS: TYPE AND SCREEN 1
[2017-09-27] MEDS ORDERED: ONDANSETRON 4 MG INJ (18:01)
[2017-09-27] MEDS ORDERED: SOD CHLORIDE 0.9% 1,000 ML IV (18:21)
[2017-09-27] MEDS ORDERED: NA PHOSPHATE/BIPHOS 133 ML ENEMA PR (18:30)
[2017-09-27] MEDS ORDERED: ONDANSETRON 4 MG INJ IV (18:30)
[2017-09-27] MEDS ORDERED: ZOLPIDEM 5 MG TAB PO (18:30)
[2017-09-27] MEDS ORDERED: DOCUSATE SODIUM 100 MG CAP PO (18:30)
[2017-09-27] MEDS ORDERED: OXYCODONE/ACETAMINOPHEN (5/325) TAB PO (18:30)
[2017-09-27] MEDS ORDERED: ACETAMINOPHEN 325 MG TAB PO (18:30)
[2017-09-27] MEDS ORDERED: BISACODYL (EC) 5 MG TAB PO (18:30)
[2017-09-27] MEDS: ACETAMINOPHEN 325 MG TAB PO (18:47)
[2017-09-27] MEDS ORDERED: GLUCAGON 1 MG INJ IM (19:00)
[2017-09-27] MEDS ORDERED: GLUCOSE GEL 15 GRAM TUBE BUCCAL (19:00)
[2017-09-27] MEDS ORDERED: DEXTROSE 50% 50 ML SYRINGE IV ×2 (19:00)
[2017-09-27] MEDS: FUROSEMIDE 20 MG INJ IV (19:00)
[2017-09-27] MEDS ORDERED: GLUCOSE GEL 15 GRAM TUBE PO ×2 (19:00)
[2017-09-27 19:05] LABS: HEMATOCRIT 20.7 % (42.0-52.0); HEMOGLOBIN 7.1 g/dl (14.0-18.0)
[2017-09-27 19:19] LABS: LACTIC ACID 1.2 mmol/L (0.5-2.0)
[2017-09-27] MEDS: SOD CHLORIDE 0.9% 1,000 ML IV (19:30)
[2017-09-27 19:43] LABS: LACTATE DEHYDROGENASE 2554 IU/L (313-618)
[2017-09-27 19:51] LABS: ADD UMIC YES; UR ASCORBIC ACID 40 mg/dL (NEGATIVE); UR BACTERIA FEW /HPF (NONE SEEN); UR BILIRUBIN (Dip) NEGATIVE (NEGATIVE); UR BLOOD (Dip) 3+ mg/dL (NEGATIVE); UR CLARITY CLOUDY (CLEAR); UR COLOR RED (YELLOW); UR GLUCOSE (Dip) NEGATIVE (NEGATIVE); UR KETONES (Dip) NEGATIVE (NEGATIVE); UR LEUKOCYTE ESTERASE (Dip) 1+ Leu/ul (NEGATIVE); UR NITRITE (Dip) NEGATIVE (NEGATIVE); UR RBC > 182 /HPF (0-5); UR SPECIFIC GRAVITY (Dip) 1.015 (1.003-1.030); UR SQUAMOUS EPITHELIAL CELL FEW /HPF (FEW); UR TOTAL PROTEIN (Dip) 2+ mg/dl (NEGATIVE); UR UROBILINOGEN (Dip) NEGATIVE (NEGATIVE); UR WBC 115 /HPF (0-5)
[2017-09-27 20:05] LABS: OPIATES Positive (NEGATIVE)
[2017-09-27 20:06] LABS: AMPHETAMINE/METHAMPHETAMINE Negative (NEGATIVE); BARBITURATES Negative (NEGATIVE); BENZODIAZEPINES Negative (NEGATIVE); CANNABINOIDS Negative (NEGATIVE); COCAINE Negative (NEGATIVE)
[2017-09-27 20:53] LABS: PRETRANSFUSION BILIRUBIN 0.3 mg/dl
[2017-09-27 20:53] LABS: POST-TRANSFUSION BILIRUBIN 0.5 mg/dl
[2017-09-27] MEDS: FAMOTIDINE 20 MG TAB PO (21:00)
[2017-09-27] MEDS ORDERED: MEROPENEM 1 GM/50ML(PMX) 50 ML IVPB (22:00)
[2017-09-27] MEDS: LINEZOLID 600 MG/D5W (PMX) 300 ML IVPB (23:05)
[2017-09-27] MEDS: PIPER-TAZO 2.25 GM (PMX) 50 ML IVPB (23:12)
[2017-09-28] MEDS: LACTOBACILLUS RHAMNOSUS CAP PO ×3 (00:55→20:14)
[2017-09-28] MEDS: ARTIFICIAL TEARS 15 ML OPH BOTH EYES ×4 (00:56→20:14)
[2017-09-28] MEDS: FLUCONAZOLE 200 MG/NS (PMX) 100 ML IVPB (00:59)
[2017-09-28] MEDS: SOD CHLORIDE 0.9% 1,000 ML IV ×3 (01:01→13:30)
[2017-09-28] MEDS: LORAZEPAM 2 MG INJ IV ×3 (01:48→22:51)
[2017-09-28] MEDS: ACCU-CHEK XX (01:56)
[2017-09-28] MEDS: PIPER-TAZO 2.25 GM (PMX) 50 ML IVPB ×3 (05:34→21:01)
[2017-09-28] MEDS: DIPHENHYDRAMINE 50 MG INJ IV ×2 (05:34→20:57)
[2017-09-28] MEDS: INSULIN ASPART [NOVOLOG] 3 ML PEN SC ×7 (07:55→20:18)
[2017-09-28] MEDS: FAMOTIDINE 20 MG TAB PO (08:14)
[2017-09-28] MEDS: LINEZOLID 600 MG/D5W (PMX) 300 ML IVPB (08:15)
[2017-09-28] MEDS: LORATADINE 10 MG TAB PO (08:15)
[2017-09-28] MEDS: morphine 2 MG INJ IV (08:16)
[2017-09-28 08:39] LABS: HEMOGLOBIN A1C 5.9 % (0-5.9)
[2017-09-28 08:40] LABS: ALANINE AMINOTRANSFERASE 36 IU/L (13-69); ALBUMIN 2.9 g/dl (3.3-4.9); ALBUMIN/GLOBULIN RATIO 0.93; ALKALINE PHOSPHATASE 111 IU/L (42-121); ANION GAP 18 (8-16); ASPARTATE AMINO TRANSFERASE 22 IU/L (15-46); BILIRUBIN,INDIRECT 0.3 mg/dl (0-1.1); BILIRUBIN,TOTAL 0.3 mg/dl (0.2-1.3); BLOOD UREA NITROGEN 46 mg/dl (7-20); CALCIUM 7.8 mg/dl (8.4-10.2); CARBON DIOXIDE 20 mmol/L (21-31); CHLORIDE 106 mmol/L (97-110); CREATININE 2.47 mg/dl (0.61-1.24); GLUCOSE 138 mg/dl (70-220); POTASSIUM 4.1 mmol/L (3.5-5.1); SODIUM 140 mmol/L (135-144)
[2017-09-28 08:54] LABS: INR 1.48; PROTIME 18.2 Sec (11.9-14.9); PT RATIO 1.4
[2017-09-28 08:55] LABS: PARTIAL THROMBOPLASTIN TIME 44.3 Sec (25.0-35.0)
[2017-09-28 10:03] LABS: WHITE BLOOD COUNT 107.9 10^3/ul (4.8-10.8)
[2017-09-28 10:03] LABS: ABNORMAL IP MESSAGE 1; HEMATOCRIT 20.1 % (42.0-52.0); MEAN CORPUSCULAR HEMOGLOBIN 29.9 pg (29.0-33.0); MEAN CORPUSCULAR HGB CONC 34.3 g/dl (32.0-37.0); POSITIVE DIFF @See below; RED BLOOD COUNT 2.31 10^6/ul (4.70-6.10); RED CELL DISTRIBUTION WIDTH 14.6 % (11.5-14.5)
[2017-09-28 10:07] LABS: HEMOGLOBIN 6.9 g/dl (14.0-18.0); PLATELET COUNT 23 10^3/UL (140-415)
[2017-09-28 10:08] LABS: ADD MAN DIFF? YES
[2017-09-28] MEDS: FLUCONAZOLE 200 MG TAB PO (10:51)
[2017-09-28 11:20] LABS: URIC ACID 12.1 mg/dl (3.1-7.9)
[2017-09-28 11:27] LABS: ANISOCYTOSIS 2+ (0-0); BAND NEUTROPHILS #M 2.1 10^3/ul (0.0-0.6); BAND NEUTROPHILS % (M) 2 % (0-4); LYMPHOCYTES #M 6.4 10^3/ul (0.8-2.9); LYMPHOCYTES % (M) 6 % (15-51); METAMYELOCYTES %M 1 % (0-0); MICROCYTOSIS 2+ (0-0); MONOCYTE #M 4.3 10^3/ul (0.3-0.9); MONOCYTES % (M) 4 % (0-11); MYELOCYTES #M 2.1 10^3/ul (0.0-0.0); MYELOCYTES % (M) 2 % (0-0); PLATELET ESTIMATE SIG DECREASED; POIKILOCYTOSIS 1+ (0-0); POLYCHROMASIA 3+ (0-0); PROMYELOCYTES #M 5.3 10^3/ul (0-0); PROMYELOCYTES % (M) 5 % (0-0); REACTIVE LYMPHOCYTES% (M) 1 % (0-0); SEGMENTED NEUTROPHILS (M) % 9 % (39-77); SMUDGE%M 3 % (0-0)
[2017-09-28] MEDS ORDERED: HYDROmorphONE 0.5 MG/0.5 ML SYG IV (13:00)
[2017-09-28] MEDS ORDERED: RASBURICASE IVPB (14:30)
[2017-09-28] MEDS ORDERED: SOD CHLORIDE 0.9% IVPB (14:30)
[2017-09-28] MEDS: FUROSEMIDE 20 MG INJ IV (14:37)
[2017-09-28] MEDS: RASBURICASE 7.5 MG in SOD CHLORIDE 0.9% 50 ML IVPB (14:42)
[2017-09-28] MEDS: ACETAMINOPHEN 325 MG TAB PO ×2 (16:05→20:57)
[2017-09-28] MEDS ORDERED: METOPROLOL 50 MG TAB PO (21:30)
[2017-09-28] MEDS ORDERED: LORAZEPAM 2 MG INJ IV (21:30)
[2017-09-28] MEDS: HALOPERIDOL 5 MG INJ IM (21:37)
[2017-09-28] MEDS: LEVALBUTEROL (NEB) 0.63 MG/3 ML AMP HHN (22:24)
[2017-09-28 22:36] LABS: AADO2 Arterial 189.3 mmHg (7.0-24.0); Allen Test ACCEPTAB; Arterial Base Excess -2.6 mmol/L (-3.0-3); Arterial HCO3 20.9 mmol/L (22.0-26.0); Arterial pCO2 32.9 mmhg (35-45); MODE NASAL CANNULA; Site Right Radial
[2017-09-28] MEDS: SCOPOLAMINE 1.5 MG PATCH TRANSDERM (23:37)
[2017-09-29] MEDS: ACCU-CHEK XX (01:35)
[2017-09-29 03:15] LABS: IMMEDIATE SPIN CROSSMATCH 1 4
[2017-09-29] MEDS: ACETAMINOPHEN 325 MG TAB PO (03:37)
[2017-09-29] MEDS: INSULIN ASPART [NOVOLOG] 3 ML PEN SC ×7 (07:51→20:23)
[2017-09-29] MEDS: PIPER-TAZO 2.25 GM (PMX) 50 ML IVPB ×3 (08:01→22:22)
[2017-09-29] MEDS: ARTIFICIAL TEARS 15 ML OPH BOTH EYES ×3 (08:07→20:14)
[2017-09-29 08:19] LABS: ABNORMAL IP MESSAGE 1; HEMATOCRIT 24.1 % (42.0-52.0); HEMOGLOBIN 8.3 g/dl (14.0-18.0); MEAN CORPUSCULAR HEMOGLOBIN 30.2 pg (29.0-33.0); MEAN CORPUSCULAR HGB CONC 34.4 g/dl (32.0-37.0); MEAN CORPUSCULAR VOLUME 87.6 fl (82.0-101.0); POSITIVE DIFF @See below; RED BLOOD COUNT 2.75 10^6/ul (4.70-6.10); RED CELL DISTRIBUTION WIDTH 14.8 % (11.5-14.5)
[2017-09-29 08:19] LABS: WHITE BLOOD COUNT 106.1 10^3/ul (4.8-10.8)
[2017-09-29] MEDS: LORATADINE 10 MG TAB PO (08:21)
[2017-09-29] MEDS: FLUCONAZOLE 200 MG TAB PO (08:21)
[2017-09-29] MEDS: FAMOTIDINE 20 MG TAB PO (08:21)
[2017-09-29] MEDS: LACTOBACILLUS RHAMNOSUS CAP PO ×2 (08:21→20:14)
[2017-09-29] MEDS: METOPROLOL 50 MG TAB PO ×2 (08:22→20:16)
[2017-09-29] MEDS: FUROSEMIDE 20 MG INJ IV (08:23)
[2017-09-29 08:39] LABS: ADD MAN DIFF? YES; PLATELET COUNT 12 10^3/UL (140-415)
[2017-09-29 08:40] LABS: PHOSPHORUS 5.2 mg/dl (2.5-4.9)
[2017-09-29 08:40] LABS: MAGNESIUM 1.9 mg/dl (1.7-2.5)
[2017-09-29 08:42] LABS: ALANINE AMINOTRANSFERASE 35 IU/L (13-69); ALBUMIN 2.8 g/dl (3.3-4.9); ALBUMIN/GLOBULIN RATIO 1.12; ALKALINE PHOSPHATASE 96 IU/L (42-121); ANION GAP 20 (8-16); ASPARTATE AMINO TRANSFERASE 20 IU/L (15-46); BILIRUBIN,INDIRECT 0.2 mg/dl (0-1.1); BILIRUBIN,TOTAL 0.2 mg/dl (0.2-1.3); BLOOD UREA NITROGEN 39 mg/dl (7-20); CALCIUM 7.6 mg/dl (8.4-10.2); CARBON DIOXIDE 21 mmol/L (21-31); CHLORIDE 108 mmol/L (97-110); CREATININE 2.46 mg/dl (0.61-1.24); GLUCOSE 148 mg/dl (70-220); POTASSIUM 3.7 mmol/L (3.5-5.1); SODIUM 145 mmol/L (135-144); TOTAL PROTEIN 5.3 g/dl (6.1-8.1)
[2017-09-29 08:51] LABS: INR 1.48; PROTIME 18.2 Sec (11.9-14.9); PT RATIO 1.4
[2017-09-29 08:52] LABS: PARTIAL THROMBOPLASTIN TIME 45.9 Sec (25.0-35.0)
[2017-09-29 08:55] LABS: URIC ACID 1.4 mg/dl (3.1-7.9)
[2017-09-29 09:31] LABS: ANISOCYTOSIS 2+ (0-0); BAND NEUTROPHILS #M 4.2 10^3/ul (0.0-0.6); BAND NEUTROPHILS % (M) 4 % (0-4); BLAST% (M) 62.4 % (0-0); LYMPHOCYTES #M 21.2 10^3/ul (0.8-2.9); LYMPHOCYTES % (M) 20 % (15-51); MICROCYTOSIS 2+ (0-0); MONOCYTE #M 2.1 10^3/ul (0.3-0.9); MONOCYTES % (M) 2 % (0-11); PLATELET ESTIMATE SIG DECREASED; POLYCHROMASIA 3+ (0-0); PROMYELOCYTES #M 6.3 10^3/ul (0-0); PROMYELOCYTES % (M) 6 % (0-0); SEG NEUT #M 10.8 10^3/ul (1.6-7.5); SEGMENTED NEUTROPHILS (M) % 6 % (39-77); SMUDGE%M 4 % (0-0)
[2017-09-29] MEDS: HYDROmorphONE 0.5 MG/0.5 ML SYG IV ×2 (10:25→22:22)
[2017-09-29] MEDS: LORAZEPAM 2 MG INJ IV (20:35)
[2017-09-29] MEDS: LEVALBUTEROL (NEB) 0.63 MG/3 ML AMP HHN (22:02)
[2017-09-30] MEDS: HYDROmorphONE 0.5 MG/0.5 ML SYG IV (02:18)
[2017-09-30] MEDS: ACCU-CHEK XX (02:23)
[2017-09-30] MEDS: PIPER-TAZO 2.25 GM (PMX) 50 ML IVPB ×3 (05:30→19:58)
[2017-09-30] MEDS: INSULIN ASPART [NOVOLOG] 3 ML PEN SC ×7 (08:16→19:57)
[2017-09-30] MEDS: METOPROLOL 50 MG TAB PO ×2 (08:21→19:57)
[2017-09-30] MEDS: FLUCONAZOLE 200 MG TAB PO (08:22)
[2017-09-30] MEDS: LACTOBACILLUS RHAMNOSUS CAP PO ×2 (08:22→19:55)
[2017-09-30] MEDS: LORATADINE 10 MG TAB PO (08:22)
[2017-09-30] MEDS: FAMOTIDINE 20 MG TAB PO (08:23)
[2017-09-30] MEDS: FUROSEMIDE 20 MG INJ IV (08:23)
[2017-09-30] MEDS: ARTIFICIAL TEARS 15 ML OPH BOTH EYES ×3 (08:25→19:54)
[2017-09-30 12:45] LABS: ABNORMAL IP MESSAGE 1; HEMATOCRIT 20.9 % (42.0-52.0); HEMOGLOBIN 7.1 g/dl (14.0-18.0); MEAN CORPUSCULAR HEMOGLOBIN 29.7 pg (29.0-33.0); MEAN CORPUSCULAR VOLUME 87.4 fl (82.0-101.0); POSITIVE DIFF @See below; RED BLOOD COUNT 2.39 10^6/ul (4.70-6.10); RED CELL DISTRIBUTION WIDTH 15.9 % (11.5-14.5)
[2017-09-30 12:45] LABS: WHITE BLOOD COUNT 118.2 10^3/ul (4.8-10.8)
[2017-09-30 12:56] LABS: MEAN PLATELET VOLUME 8.8 fl (7.4-10.4)
[2017-09-30 12:58] LABS: ADD MAN DIFF? YES; PLATELET COUNT 5 10^3/UL (140-415)
[2017-09-30 13:03] LABS: ANION GAP 19 (8-16); BLOOD UREA NITROGEN 44 mg/dl (7-20); CALCIUM 7.7 mg/dl (8.4-10.2); CARBON DIOXIDE 20 mmol/L (21-31); CHLORIDE 106 mmol/L (97-110); CREATININE 2.59 mg/dl (0.61-1.24); GLUCOSE 169 mg/dl (70-220); POTASSIUM 3.9 mmol/L (3.5-5.1); SODIUM 141 mmol/L (135-144)
[2017-09-30 13:31] LABS: ANISOCYTOSIS 2+ (0-0); BAND NEUTROPHILS #M 2.3 10^3/ul (0.0-0.6); BAND NEUTROPHILS % (M) 2 % (0-4); BASOPHIL #M 1.1 10^3/ul (0.0-0.0); BASOPHILS % (M) 1 % (0-2); BLAST% (M) 65.3 % (0-0); LYMPHOCYTES % (M) 11 % (15-51); MICROCYTOSIS 1+ (0-0); MONOCYTE #M 3.5 10^3/ul (0.3-0.9); MONOCYTES % (M) 3 % (0-11); MYELOCYTES #M 11.8 10^3/ul (0.0-0.0); MYELOCYTES % (M) 10 % (0-0); PLATELET ESTIMATE SIG DECREASED; POLYCHROMASIA 3+ (0-0); PROMYELOCYTES #M 3.5 10^3/ul (0-0); PROMYELOCYTES % (M) 3 % (0-0); SEG NEUT #M 8.6 10^3/ul (1.6-7.5); SEGMENTED NEUTROPHILS (M) % 5 % (39-77); SMUDGE%M 4 % (0-0)
[2017-09-30] MEDS: ONDANSETRON 4 MG INJ IV (17:42)
[2017-09-30] MEDS: SOD CHLORIDE 0.9% 250 ML IV* (18:27)
[2017-09-30 18:46] LABS: TYPE AND SCREEN 1
[2017-09-30] MEDS: DIPHENHYDRAMINE 50 MG INJ IV (19:55)
[2017-10-01] MEDS: FUROSEMIDE 20 MG INJ IV ×2 (00:26→08:10)
[2017-10-01] MEDS: HYDROmorphONE 0.5 MG/0.5 ML SYG IV ×3 (00:26→21:02)
[2017-10-01] MEDS: LEVALBUTEROL (NEB) 0.63 MG/3 ML AMP HHN (00:29)
[2017-10-01 01:35] LABS: AADO2 Arterial 178.8 mmHg (7.0-24.0); Arterial Base Excess -5.6 mmol/L (-3.0-3); Arterial Blood Gas Oxygen Sat 89.8 mmHG (95.0-98.0); Arterial COHb 0.8 % (0.0-3.0); Arterial Fraction of Oxyhgb 88.6 % (93.0-99.0); Arterial HCO3 19.4 mmol/L (22.0-26.0); Arterial MetHb 0.5 % (0.0-1.5); Arterial Total Hemglobin 7.6 g/dl (12.0-18.0); Arterial pCO2 35.3 mmhg (35-45); MODE NASAL CANNULA; Site Right Brachial
[2017-10-01] MEDS: ACCU-CHEK XX (02:00)
[2017-10-01 02:06] LABS: IMMEDIATE SPIN CROSSMATCH 1 3
[2017-10-01] MEDS: PIPER-TAZO 2.25 GM (PMX) 50 ML IVPB ×3 (06:12→22:43)
[2017-10-01] MEDS ORDERED: HALOPERIDOL 5 MG INJ IM (07:30)
[2017-10-01] MEDS: HALOPERIDOL 5 MG INJ IM (07:41)
[2017-10-01] MEDS: INSULIN ASPART [NOVOLOG] 3 ML PEN SC ×7 (07:50→21:16)
[2017-10-01] MEDS: LACTOBACILLUS RHAMNOSUS CAP PO ×2 (08:06→20:57)
[2017-10-01] MEDS: FAMOTIDINE 20 MG TAB PO (08:07)
[2017-10-01] MEDS: FLUCONAZOLE 200 MG TAB PO (08:07)
[2017-10-01] MEDS: LORATADINE 10 MG TAB PO (08:08)
[2017-10-01] MEDS: METOPROLOL 50 MG TAB PO ×2 (08:09→20:58)
[2017-10-01] MEDS: ARTIFICIAL TEARS 15 ML OPH BOTH EYES ×3 (08:12→20:57)
[2017-10-01 11:02] LABS: ABNORMAL IP MESSAGE 1; HEMATOCRIT 22.4 % (42.0-52.0); HEMOGLOBIN 7.4 g/dl (14.0-18.0); MEAN CORPUSCULAR HEMOGLOBIN 29.2 pg (29.0-33.0); MEAN CORPUSCULAR VOLUME 88.5 fl (82.0-101.0); POSITIVE DIFF @See below; RED BLOOD COUNT 2.53 10^6/ul (4.70-6.10); RED CELL DISTRIBUTION WIDTH 15.9 % (11.5-14.5)
[2017-10-01 11:02] LABS: WHITE BLOOD COUNT 132.3 10^3/ul (4.8-10.8)
[2017-10-01 11:04] LABS: ADD MAN DIFF? YES; MEAN PLATELET VOLUME 10.8 fl (7.4-10.4); PLATELET COUNT 33 10^3/UL (140-415)
[2017-10-01 11:22] LABS: ALANINE AMINOTRANSFERASE 35 IU/L (13-69); ALBUMIN 3.1 g/dl (3.3-4.9); ALBUMIN/GLOBULIN RATIO 1.03; ALKALINE PHOSPHATASE 110 IU/L (42-121); ANION GAP 22 (8-16); ASPARTATE AMINO TRANSFERASE 33 IU/L (15-46); BILIRUBIN,INDIRECT 0.4 mg/dl (0-1.1); BILIRUBIN,TOTAL 0.4 mg/dl (0.2-1.3); BLOOD UREA NITROGEN 50 mg/dl (7-20); CALCIUM 7.9 mg/dl (8.4-10.2); CARBON DIOXIDE 23 mmol/L (21-31); CHLORIDE 107 mmol/L (97-110); CREATININE 2.58 mg/dl (0.61-1.24); GLUCOSE 143 mg/dl (70-220); POTASSIUM 3.6 mmol/L (3.5-5.1); SODIUM 148 mmol/L (135-144); TOTAL PROTEIN 6.1 g/dl (6.1-8.1)
[2017-10-01 12:44] LABS: ANISOCYTOSIS 2+ (0-0); BAND NEUTROPHILS #M 3.9 10^3/ul (0.0-0.6); BAND NEUTROPHILS % (M) 3 % (0-4); LYMPHOCYTES #M 10.5 10^3/ul (0.8-2.9); LYMPHOCYTES % (M) 8 % (15-51); MICROCYTOSIS 2+ (0-0); MONOCYTE #M 25.1 10^3/ul (0.3-0.9); MONOCYTES % (M) 19 % (0-11); MYELOCYTES #M 2.6 10^3/ul (0.0-0.0); MYELOCYTES % (M) 2 % (0-0); PLATELET ESTIMATE SIG DECREASED; POLYCHROMASIA 3+ (0-0); PROMYELOCYTES #M 5.2 10^3/ul (0-0); PROMYELOCYTES % (M) 4 % (0-0); SEG NEUT #M 11.8 10^3/ul (1.6-7.5); SEGMENTED NEUTROPHILS (M) % 5 % (39-77); SMUDGE%M 10 % (0-0)
[2017-10-01] MEDS: SCOPOLAMINE 1.5 MG PATCH TRANSDERM (22:43)
[2017-10-01] MEDS: ONDANSETRON 4 MG INJ IV (22:44)
[2017-10-02] MEDS: ACCU-CHEK XX (02:00)
[2017-10-02] MEDS: DIPHENHYDRAMINE 50 MG INJ IV ×2 (04:35→21:34)
[2017-10-02] MEDS: PIPER-TAZO 2.25 GM (PMX) 50 ML IVPB ×3 (06:13→21:33)
[2017-10-02] MEDS: ONDANSETRON 4 MG INJ IV (06:29)
[2017-10-02] MEDS: INSULIN ASPART [NOVOLOG] 3 ML PEN SC ×7 (08:23→20:24)
[2017-10-02] MEDS: ARTIFICIAL TEARS 15 ML OPH BOTH EYES ×3 (08:53→20:22)
[2017-10-02] MEDS: FLUCONAZOLE 200 MG TAB PO (08:54)
[2017-10-02] MEDS: LORATADINE 10 MG TAB PO (08:54)
[2017-10-02] MEDS: LACTOBACILLUS RHAMNOSUS CAP PO ×2 (08:54→20:22)
[2017-10-02] MEDS: FUROSEMIDE 20 MG INJ IV (08:54)
[2017-10-02] MEDS: METOPROLOL 50 MG TAB PO ×2 (08:55→20:22)
[2017-10-02] MEDS: FAMOTIDINE 20 MG TAB PO (08:55)
[2017-10-02] MEDS: LEVALBUTEROL (NEB) 0.63 MG/3 ML AMP HHN (15:02)
[2017-10-02] MEDS ORDERED: HALOPERIDOL 5 MG INJ IV (15:30)
[2017-10-03] MEDS: ACCU-CHEK XX (02:00)
[2017-10-03] MEDS: PIPER-TAZO 2.25 GM (PMX) 50 ML IVPB ×3 (05:27→21:24)
[2017-10-03 08:12] LABS: ALANINE AMINOTRANSFERASE 34 IU/L (13-69); ALBUMIN/GLOBULIN RATIO 1.03; ALKALINE PHOSPHATASE 100 IU/L (42-121); ANION GAP 20 (8-16); ASPARTATE AMINO TRANSFERASE 35 IU/L (15-46); BILIRUBIN,INDIRECT 0.2 mg/dl (0-1.1); BILIRUBIN,TOTAL 0.2 mg/dl (0.2-1.3); BLOOD UREA NITROGEN 50 mg/dl (7-20); CALCIUM 7.8 mg/dl (8.4-10.2); CARBON DIOXIDE 24 mmol/L (21-31); CHLORIDE 108 mmol/L (97-110); CREATININE 2.31 mg/dl (0.61-1.24); GLUCOSE 216 mg/dl (70-220); POTASSIUM 4.3 mmol/L (3.5-5.1); SODIUM 148 mmol/L (135-144); TOTAL PROTEIN 5.9 g/dl (6.1-8.1)
[2017-10-03 08:22] LABS: ABNORMAL IP MESSAGE 1; HEMATOCRIT 18.3 % (42.0-52.0); MEAN CORPUSCULAR HGB CONC 32.8 g/dl (32.0-37.0); MEAN CORPUSCULAR VOLUME 91.5 fl (82.0-101.0); MEAN PLATELET VOLUME 9.9 fl (7.4-10.4); POSITIVE DIFF @See below; RED CELL DISTRIBUTION WIDTH 16.5 % (11.5-14.5)
[2017-10-03 08:22] LABS: WHITE BLOOD COUNT 132.7 10^3/ul (4.8-10.8)
[2017-10-03] MEDS: INSULIN ASPART [NOVOLOG] 3 ML PEN SC ×7 (08:23→21:00)
[2017-10-03] MEDS: LORATADINE 10 MG TAB PO (08:24)
[2017-10-03] MEDS: LACTOBACILLUS RHAMNOSUS CAP PO ×2 (08:24→21:00)
[2017-10-03] MEDS: FLUCONAZOLE 200 MG TAB PO (08:24)
[2017-10-03 08:25] LABS: PLATELET COUNT 5 10^3/UL (140-415)
[2017-10-03] MEDS: ARTIFICIAL TEARS 15 ML OPH BOTH EYES ×3 (08:25→21:30)
[2017-10-03] MEDS: FUROSEMIDE 20 MG INJ IV ×2 (08:25→19:16)
[2017-10-03 08:26] LABS: ADD MAN DIFF? YES
[2017-10-03] MEDS: FAMOTIDINE 20 MG TAB PO (08:26)
[2017-10-03] MEDS: METOPROLOL 50 MG TAB PO ×2 (08:26→21:00)
[2017-10-03 10:23] LABS: ANISOCYTOSIS 2+ (0-0); BAND NEUTROPHILS #M 2.6 10^3/ul (0.0-0.6); BAND NEUTROPHILS % (M) 2 % (0-4); BLAST% (M) 64.4 % (0-0); LYMPHOCYTES #M 19.9 10^3/ul (0.8-2.9); LYMPHOCYTES % (M) 15 % (15-51); MICROCYTOSIS 2+ (0-0); MONOCYTE #M 3.9 10^3/ul (0.3-0.9); MONOCYTES % (M) 3 % (0-11); MYELOCYTES #M 2.6 10^3/ul (0.0-0.0); MYELOCYTES % (M) 2 % (0-0); PLATELET ESTIMATE SIG DECREASED; POLYCHROMASIA 3+ (0-0); PROMYELOCYTES #M 13.2 10^3/ul (0-0); PROMYELOCYTES % (M) 10 % (0-0); SEG NEUT #M 8.8 10^3/ul (1.6-7.5); SEGMENTED NEUTROPHILS (M) % 4 % (39-77); SMUDGE%M 3 % (0-0)
[2017-10-03] MEDS: DIPHENHYDRAMINE 50 MG INJ IV (14:41)
[2017-10-03 15:12] LABS: TYPE AND SCREEN 1
[2017-10-03 16:30] LABS: IMMEDIATE SPIN CROSSMATCH 1 4
[2017-10-03] MEDS: FUROSEMIDE 40 MG INJ IV (17:07)
[2017-10-03] MEDS: HYDROmorphONE 0.5 MG/0.5 ML SYG IV (23:07)
[2017-10-04] MEDS: HYDROmorphONE 0.5 MG/0.5 ML SYG IV ×4 (01:17→14:37)
[2017-10-04] MEDS: ACCU-CHEK XX (02:00)
[2017-10-04] MEDS: PIPER-TAZO 2.25 GM (PMX) 50 ML IVPB (05:18)
[2017-10-04] MEDS: INSULIN ASPART [NOVOLOG] 3 ML PEN SC ×4 (07:55→11:40)
[2017-10-04] MEDS: LORATADINE 10 MG TAB PO (09:00)
[2017-10-04] MEDS: FAMOTIDINE 20 MG TAB PO (09:00)
[2017-10-04] MEDS: ARTIFICIAL TEARS 15 ML OPH BOTH EYES ×2 (09:00→12:51)
[2017-10-04] MEDS: FLUCONAZOLE 200 MG TAB PO (09:00)
[2017-10-04] MEDS: LACTOBACILLUS RHAMNOSUS CAP PO (09:00)
[2017-10-04] MEDS: METOPROLOL 50 MG TAB PO (09:00)
[2017-10-04] MEDS: FUROSEMIDE 20 MG INJ IV (09:29)
[2017-10-04] MEDS ORDERED: ACETAMINOPHEN 650 MG SUPP PR (15:30)
[2017-10-04] MEDS ORDERED: ATROPINE 1% 5 ML OPH SL (15:30)
[2017-10-04] MEDS ORDERED: ARTIFICIAL TEARS 15 ML OPH BOTH EYES (15:30)
[2017-10-04] MEDS ORDERED: ONDANSETRON 4 MG INJ IV (15:30)
[2017-10-04] MEDS ORDERED: LORAZEPAM 2 MG INJ IV (15:30)
[2017-10-04] MEDS ORDERED: DIMETHICONE STICK TOP (15:30)
[2017-10-04] MEDS: HYDROmorphONE 50 MG in DEXTROSE 5% 50 ML IV (16:07)
[2017-10-04] MEDS ORDERED: GLIMEPIRIDE 2 MG TAB PO (17:55)
[2017-10-04] MEDS ORDERED: CEPHALEXIN 500 MG CAP PO (21:00)
== END 2017-10-04 19:48 | disposition hospice, inpatient (51) | DRG 834 ==
LOC: E/R 05:50 → TEL 18:23
PROC: 30243R1 Transfusion of Nonautologous Platelets into Central Vein, Percutaneous Approach (ICD-10-PCS; principal; 2017-09-27)
PROC: 30243N1 Transfusion of Nonautologous Red Blood Cells into Central Vein, Percutaneous Approach (ICD-10-PCS; 2017-09-27)
DX: C92.00 Acute myeloblastic leukemia, not having achieved remission (principal); E88.3 Tumor lysis syndrome; D65 Disseminated intravascular coagulation [defibrination syndrome]; J96.01 Acute respiratory failure with hypoxia; A41.02 Sepsis due to Methicillin resistant Staphylococcus aureus; J90 Pleural effusion, not elsewhere classified; G93.49 Other encephalopathy; J18.9 Pneumonia, unspecified organism; R65.20 Severe sepsis without septic shock; B37.0 Candidal stomatitis; N39.0 Urinary tract infection, site not specified; N17.9 Acute kidney failure, unspecified; D70.9 Neutropenia, unspecified; D69.6 Thrombocytopenia, unspecified; I95.9 Hypotension, unspecified; N18.3 Chronic kidney disease, stage 3 (moderate); E11.22 Type 2 diabetes mellitus with diabetic chronic kidney disease; D63.0 Anemia in neoplastic disease; S70.11XA Contusion of right thigh, initial encounter; I12.9 Hypertensive chronic kidney disease with stage 1 through stage 4 chronic kidney disease, or unspecified chronic kidney disease; F41.9 Anxiety disorder, unspecified; F40.240 Claustrophobia; E78.00 Pure hypercholesterolemia, unspecified; R45.1 Restlessness and agitation; R16.2 Hepatomegaly with splenomegaly, not elsewhere classified; X58.XXXA Exposure to other specified factors, initial encounter; Z66 Do not resuscitate; Z79.4 Long term (current) use of insulin; B37.9 Candidiasis, unspecified; Z87.891 Personal history of nicotine dependence
CPT/HCPCS: 36415; 36430; 36600; 71045; 74176; 80048; 80053; 80307; 81001; 82803; 82962; 83036; 83605; 83615; 83735; 84100; 84484; 84560; 85014; 85018; 85025; 85610; 85730; 86078; 86644; 86850; 86900; 86901; 86920; 86945; 87040; 87086; 93005; 94640; 94660; 94664; 96374; 96375; 96376; 97163; 97167; 99291-25; J1940